=== PATIENT | female | born 1980 | race Caucasian/White ===

== ENCOUNTER 2018-04-19 19:07 | Emergency (ER) | payer MEDICARE, MEDICAID ==
[~2018-04-19] VITALS: Ht 162.6 cm; Wt 98.0 kg
[~2018-04-19 19:07] MED LIST: ACET-1008 PO; ALB0.5UD IH; ARIP5TAB4 PO; ASPI-611 PO; AZIT-63 PO; BACL10TA PO; CLA10T PO; DIPH25CA83 PO; IBUP-1984 PO; LAMO200T2 PO; LEVA15HF4 IH; LORA1TAB PO; LURA60TA2 PO; OMEP20TA23 PO; ZALE10CA PO
[2018-04-19 19:46] LABS: URINE HCG NEGATIVE (NEG)
[2018-04-19 19:55] LABS: CLARITY,URINE CLEAR (Clear); COLOR,URINE YELLOW (Yellow); GLUCOSE, URINE NEGATIVE (Neg); KETONES,URINE NEGATIVE (Neg); LEUKOCYTE ESTERASE ,URINE NEGATIVE (Neg); NITRITES, URINE NEGATIVE (Neg); OCCULT BLOOD,URINE MODERATE (Neg); PROTEIN,URINE NEGATIVE (Neg)
[2018-04-19 19:57] LABS: UA COLLECTION TYPE CLN CATCH MIDSTREAM
[2018-04-19 19:57] LABS: PROTHROMBIN TIME 9.9 SECONDS (9.0-12.0)
[2018-04-19 19:58] LABS: BASOPHILS # (AUTO) 0.1 X10'3 (0-0.2); BASOPHILS % (AUTO) 0.6 % (0-1); EOSINOPHILS # (AUTO) 0.2 X10'3 (0-0.9); EOSINOPHILS % (AUTO) 1.4 % (0-6); HEMATOCRIT 37.9 % (35.0-45.0); LYMPHOCYTES # (AUTO) 3.3 X10'3 (1.1-4.8); LYMPHOCYTES % (AUTO) 25.1 % (21-51); MEAN CORPUSCULAR HEMOGLOBIN 28.9 PG (27.0-31.0); MEAN CORPUSCULAR HGB CONC 34.2 % (33.0-36.5); MEAN CORPUSCULAR VOLUME 84.4 FL (78-98); MEAN PLATELET VOLUME 9.4 FL (7.4-10.4); MONOCYTES % (AUTO) 7.8 % (2-12); NEUTROPHILS # (AUTO) 8.5 X10'3 (1.8-7.7); NEUTROPHILS % (AUTO) 65.1 % (42-75); PLATELET COUNT 283 X10'3 (140-440); RED CELL DISTRIBUTION WIDTH 12.3 % (11.5-14.5); WHITE BLOOD COUNT 13.1 X10'3 (4.5-11.0)
[2018-04-19 20:02] LABS: BACTERIA,URINE FEW /HPF (Neg); MUCUS STRANDS FEW /LPF (Neg); RBC,URINE 0-2 /HPF (0-2); SQUAMOUS EPITHELIAL CELL,UR FEW /LPF (FEW); WBC,URINE 0-4 /HPF (0-4)
[2018-04-19 20:03] LABS: ALANINE AMINOTRANSFERASE 30 U/L (12-78); ALBUMIN 3.7 G/DL (3.4-5.0); ALBUMIN/GLOBULIN RATIO 1.1 (1.1-1.5); ALKALINE PHOSPHATASE 78 IU/L (46-116); ANION GAP 8 (8-16); ASPARTATE AMINO TRANSFERASE 24 U/L (10-37); BILIRUBIN,TOTAL 0.2 MG/DL (0.1-1.0); BLOOD UREA NITROGEN 21 MG/DL (7-18); BUN/CREATININE RATIO 16.4 (6.6-38.0); CALCIUM 9.5 MG/DL (8.5-10.1); CHLORIDE 102 MMOL/L (99-107); CREATININE 1.28 MG/DL (0.40-0.90); GLUCOSE 87 MG/DL (70-104); POTASSIUM 3.6 MMOL/L (3.5-5.1); SODIUM 140 MMOL/L (135-145); TOTAL CARBON DIOXIDE 30.1 MMOL/L (24-32); TOTAL PROTEIN 7.1 G/DL (6.4-8.2); eGFR 46 ML/MIN
[2018-04-19 20:19] VITALS: BP 114/63
[2018-04-19] MEDS ORDERED: MEDR5TAB PO (21:03)
== END 2018-04-19 21:09 | disposition home or self-care (01) ==
LOC: ER 19:07
DX: N93.8 Other specified abnormal uterine and vaginal bleeding (principal); I10 Essential (primary) hypertension; J45.909 Unspecified asthma, uncomplicated; Z86.711 Personal history of pulmonary embolism; G89.29 Other chronic pain; Z86.718 Personal history of other venous thrombosis and embolism; F41.9 Anxiety disorder, unspecified; F31.9 Bipolar disorder, unspecified; G47.30 Sleep apnea, unspecified; Z88.5 Allergy status to narcotic agent; Z79.82 Long term (current) use of aspirin; Z79.899 Other long term (current) drug therapy; Z79.2 Long term (current) use of antibiotics
CPT/HCPCS: 36415; 80053; 81001; 81025; 85025; 85610; 99284

== ENCOUNTER 2018-10-16 18:27 | Emergency (ER) | payer MEDICARE, MEDICAID ==
[~2018-10-16] VITALS: Ht 162.6 cm; Wt 109.0 kg
[~2018-10-16 18:27] MED LIST changes: +MEDR5TAB PO; +ONDA4TAB6 PO
--- NOTE | 2018-10-16 18:44 | NUR ---
POISON CONTROL CONTACTED AND SAID TO IRRIGATE WITH WATER OR SALINE FOR 10-15 MINUTES, OR USE MINERAL OIL, IF UNABLE TO REMOVE CALL COMPANY
--- NOTE | 2018-10-16 19:35 | NUR ---
PATIENT FINGERS SOAKED IN MINERAL OIL PER POISON CONTROL AT THIS TIME.
[2018-10-16 20:16] VITALS: BP 116/92
== END 2018-10-16 20:19 | disposition home or self-care (01) ==
LOC: ER 18:27
DX: T23.421A Corrosion of unspecified degree of single right finger (nail) except thumb, initial encounter (principal); I10 Essential (primary) hypertension; J45.909 Unspecified asthma, uncomplicated; G89.29 Other chronic pain; Z86.711 Personal history of pulmonary embolism; Z79.82 Long term (current) use of aspirin; Z79.899 Other long term (current) drug therapy; Y92.89 Other specified places as the place of occurrence of the external cause
CPT/HCPCS: 99281

== ENCOUNTER 2018-12-08 15:30 | Emergency (ER) | payer MEDICARE, MEDICAID ==
[~2018-12-08] VITALS: Ht 162.6 cm; Wt 110.9 kg
[2018-12-08 15:41] VITALS: BP 122/67
[2018-12-08 16:08] LABS: BASOPHILS # (AUTO) 0.2 X10'3 (0-0.2); BASOPHILS % (AUTO) 1.4 % (0-1); EOSINOPHILS # (AUTO) 0.2 X10'3 (0-0.9); EOSINOPHILS % (AUTO) 1.6 % (0-6); HEMATOCRIT 37.1 % (35.0-45.0); HEMOGLOBIN 12.1 g/dl (12.0-16.0); LYMPHOCYTES # (AUTO) 2.5 X10'3 (1.1-4.8); LYMPHOCYTES % (AUTO) 20.2 % (21-51); MEAN CORPUSCULAR HGB CONC 32.5 g/dL (33.0-36.5); MEAN CORPUSCULAR VOLUME 86.1 FL (78-98); MEAN PLATELET VOLUME 8.8 FL (7.4-10.4); MONOCYTES # (AUTO) 0.9 X10'3 (0-0.9); MONOCYTES % (AUTO) 7.7 % (2-12); NEUTROPHILS # (AUTO) 8.4 X10'3 (1.8-7.7); NEUTROPHILS % (AUTO) 69.1 % (42-75); PLATELET COUNT 270 X10'3 (140-440); RED BLOOD COUNT 4.31 X10'6 (4.20-5.60); WHITE BLOOD COUNT 12.2 X10'3 (4.5-11.0)
[2018-12-08 16:09] LABS: CLARITY,URINE CLEAR (Clear); COLOR,URINE STRAW (Yellow); GLUCOSE, URINE NEGATIVE (Neg); KETONES,URINE NEGATIVE (Neg); LEUKOCYTE ESTERASE ,URINE NEGATIVE (Neg); NITRITES, URINE NEGATIVE (Neg); OCCULT BLOOD,URINE NEGATIVE (Neg); PH,URINE 5.5 (4.8-8.0); PROTEIN,URINE NEGATIVE (Neg); UROBILINOGEN,URINE 0.2 E.U/dL (0.2-1.0)
[2018-12-08 16:10] LABS: URINE HCG NEGATIVE (NEG)
[2018-12-08 16:13] LABS: UA COLLECTION TYPE CLN CATCH MIDSTREAM
[2018-12-08 16:22] LABS: ALANINE AMINOTRANSFERASE 19 U/L (12-78); ALBUMIN 3.5 G/DL (3.4-5.0); ALKALINE PHOSPHATASE 61 IU/L (46-116); ANION GAP 5 (8-16); ASPARTATE AMINO TRANSFERASE 14 U/L (10-37); BILIRUBIN,TOTAL 0.1 MG/DL (0.1-1.0); BLOOD UREA NITROGEN 20 MG/DL (7-18); CALCIUM 9.1 MG/DL (8.5-10.1); CHLORIDE 105 MMOL/L (99-107); CREATININE 1.05 MG/DL (0.40-0.90); GLUCOSE 90 MG/DL (70-104); POTASSIUM 3.9 MMOL/L (3.5-5.1); SODIUM 139 MMOL/L (135-145); TOTAL CARBON DIOXIDE 28.7 MMOL/L (24-32); TOTAL PROTEIN 6.9 G/DL (6.4-8.2); eGFR 58 ML/MIN
[2018-12-08] MEDS ORDERED: mag hydrox/Alum hydrox/simeth 30ml oral suspension PO ONE (17:10)
[2018-12-08] MEDS ORDERED: acetaminophen 325mg tablet PO ONE (17:10)
[2018-12-08] MEDS ORDERED: metoclopramide 10mg tablet PO ONE (17:10)
[2018-12-08] MEDS ORDERED: ketorolac trometh inj. 60 MG/2 ML VIAL IM ONE (17:10)
[2018-12-08] MEDS ORDERED: LIDOcaine Viscous 15ml cup PO ONE (17:10)
[2018-12-08] MEDS ORDERED: famotidine 20mg tablet PO ONE (17:10)
[2018-12-08] MEDS ORDERED: PANT-47 PO (17:13)
[2018-12-08] MEDS ORDERED: AMOX500C2 PO (17:13)
== END 2018-12-08 17:43 | disposition home or self-care (01) ==
LOC: ER 15:31
DX: R51 Headache (principal); H66.92 Otitis media, unspecified, left ear; R10.13 Epigastric pain; I10 Essential (primary) hypertension; J45.909 Unspecified asthma, uncomplicated; G89.29 Other chronic pain; Z86.718 Personal history of other venous thrombosis and embolism; Z88.6 Allergy status to analgesic agent; Z79.82 Long term (current) use of aspirin
CPT/HCPCS: 36415; 80053; 81003; 81025; 85025; 85610; 96372; 99284; J1885; J8597

== ENCOUNTER 2018-12-17 16:57 | Emergency (ER) | payer MEDICARE, MEDICAID ==
[~2018-12-17] VITALS: Ht 162.6 cm; Wt 108.0 kg
[~2018-12-17 16:57] MED LIST changes: +AMOX500C2 PO; +PANT-47 PO
[2018-12-17 17:19] VITALS: BP 128/63
[2018-12-17 18:21] LABS: URINE HCG NEGATIVE (NEG)
[2018-12-17 18:23] LABS: CLARITY,URINE CLEAR (Clear); COLOR,URINE STRAW (Yellow); GLUCOSE, URINE NEGATIVE (Neg); KETONES,URINE NEGATIVE (Neg); LEUKOCYTE ESTERASE ,URINE NEGATIVE (Neg); NITRITES, URINE NEGATIVE (Neg); OCCULT BLOOD,URINE TRACE-INTACT (Neg); PH,URINE 7.5 (4.8-8.0); PROTEIN,URINE NEGATIVE (Neg); UROBILINOGEN,URINE 0.2 E.U/dL (0.2-1.0)
[2018-12-17 18:25] LABS: UA COLLECTION TYPE CLN CATCH MIDSTREAM
[2018-12-17 18:40] LABS: MUCUS STRANDS FEW /LPF (Neg); SQUAMOUS EPITHELIAL CELL,UR FEW /LPF (FEW)
[2018-12-17 18:42] LABS: BACTERIA,URINE NONE SEEN /HPF (Neg); RBC,URINE NONE SEEN /HPF (0-2); WBC,URINE NONE SEEN /HPF (0-4)
[2018-12-17] MEDS ORDERED: CYCL-1 PO (19:59)
== END 2018-12-17 20:18 | disposition home or self-care (01) ==
LOC: ER 16:58
DX: S39.012A Strain of muscle, fascia and tendon of lower back, initial encounter (principal); I10 Essential (primary) hypertension; J45.909 Unspecified asthma, uncomplicated; Z86.718 Personal history of other venous thrombosis and embolism; G89.29 Other chronic pain; Z88.5 Allergy status to narcotic agent; Z79.82 Long term (current) use of aspirin; Z79.899 Other long term (current) drug therapy; X58.XXXA Exposure to other specified factors, initial encounter; Y93.89 Activity, other specified; Y92.89 Other specified places as the place of occurrence of the external cause; Y99.8 Other external cause status
CPT/HCPCS: 81001; 81025; 99283

== ENCOUNTER 2019-04-04 17:29 | Emergency (ER) | payer MEDICARE, MEDICAID ==
[~2019-04-04] VITALS: Ht 162.6 cm; Wt 113.6 kg
[~2019-04-04 17:29] MED LIST changes: -AMOX500C2 PO; +CYCL-1 PO
[2019-04-04 17:32] VITALS: BP 129/52
[2019-04-04] MEDS ORDERED: ketorolac tromethamine 15mg/ml inj. IM ONE (19:30)
== END 2019-04-04 20:26 | disposition home or self-care (01) ==
LOC: ER 17:30
DX: R07.89 Other chest pain (principal); I10 Essential (primary) hypertension; J45.909 Unspecified asthma, uncomplicated; G47.30 Sleep apnea, unspecified; G89.29 Other chronic pain; F41.9 Anxiety disorder, unspecified; F31.9 Bipolar disorder, unspecified; Z86.711 Personal history of pulmonary embolism; Z86.718 Personal history of other venous thrombosis and embolism; Z88.5 Allergy status to narcotic agent; Z79.82 Long term (current) use of aspirin; Z79.899 Other long term (current) drug therapy
CPT/HCPCS: 71045; 96372; 99283; J1885

== ENCOUNTER 2019-04-10 14:07 | Emergency (ER) | payer MEDICARE, MEDICAID ==
[~2019-04-10] VITALS: Ht 162.6 cm; Wt 113.6 kg
--- NOTE | 2019-04-10 18:04 | NUR ---
pt ias resting with family at bedside
--- NOTE | 2019-04-10 19:00 | NUR ---
Assumed care of pt. Pt. sittng quietly in bed, 24 hour career and technology education teacher at her side. Pt. currently denies S/I, H/I, or H/A. Per caregiver, she was sent her by her psychiatrist for a medication adjustment, however she has an appointment to see her psychiatrist on Saturday. Pt. states, "I haven't been taking a PRN medication for nightmares X2 weeks and my head feels be." Pt. reports she wants go home and feels safe to do so with her 24 hour care providers. MD here to pt. and medically cleared for D/C and F/U with psychiatrist on Saturday.
[2019-04-10 19:18] VITALS: BP 123/57
--- NOTE | 2019-04-10 19:30 | NUR ---
Reviewed D/C instructions. Pt. provided with resources, and able to contact for safety at this time. Has an appointment to F/U with psychiatrist on Saturday. Pt. accompainied to private vehicle with caregivers and staff.
== END 2019-04-10 19:50 | disposition home or self-care (01) ==
LOC: ER 14:08
DX: F99 Mental disorder, not otherwise specified (principal); E66.9 Obesity, unspecified; I10 Essential (primary) hypertension; J45.909 Unspecified asthma, uncomplicated; G47.30 Sleep apnea, unspecified; G89.29 Other chronic pain; F41.9 Anxiety disorder, unspecified; F31.9 Bipolar disorder, unspecified; Z86.711 Personal history of pulmonary embolism; Z86.718 Personal history of other venous thrombosis and embolism; Z88.5 Allergy status to narcotic agent; Z79.82 Long term (current) use of aspirin; Z79.2 Long term (current) use of antibiotics; Z79.899 Other long term (current) drug therapy
CPT/HCPCS: 99281

== ENCOUNTER 2019-04-17 14:21 | Emergency (ER) | payer MEDICARE, MEDICAID ==
--- NOTE | 2019-04-17 15:06 | NUR ---
Second call not in lobby
== END 2019-04-17 15:44 | disposition left against medical advice (07) ==
LOC: ER 14:21
DX: R07.81 Pleurodynia (principal); Z53.21 Procedure and treatment not carried out due to patient leaving prior to being seen by health care provider

== ENCOUNTER 2019-08-10 15:56 | Emergency (ER) | payer MEDICARE, MEDICAID ==
[~2019-08-10] VITALS: Ht 161.3 cm; Wt 113.8 kg
[~2019-08-10 15:56] MED LIST changes: +ARIP5TAB14 PO; -ARIP5TAB4 PO
[2019-08-10] MEDS ORDERED: dexamethasone sod phosphate 10mg/ml inj IV STA (17:01)
[2019-08-10] MEDS ORDERED: ondansetron/PF 4mg/2ml inj IV ONE (17:05)
[2019-08-10] MEDS ORDERED: ketorolac tromethamine 15mg/ml inj. IV ONE (17:05)
[2019-08-10] MEDS ORDERED: normal saline 1000ML IV soln IVB ONE ×2 (17:05→18:00)
--- NOTE | 2019-08-10 18:09 | NUR ---
Pt is scheduled to have 5pm medications at the facility where she resides and RAS Schaeffer approved the caregiver from the home to dispense her regularly scheduled medications per their orders/routine.
[2019-08-10] MEDS ORDERED: morphine 2 MG/ML inj. syringe IV ONE (18:45)
[2019-08-10 19:25] VITALS: BP 124/70
== END 2019-08-10 19:27 | disposition home or self-care (01) ==
LOC: ER 15:57
DX: R51 Headache (principal); H92.09 Otalgia, unspecified ear; J45.909 Unspecified asthma, uncomplicated; I10 Essential (primary) hypertension; G47.30 Sleep apnea, unspecified; F41.9 Anxiety disorder, unspecified; F31.9 Bipolar disorder, unspecified; G89.29 Other chronic pain; Z86.711 Personal history of pulmonary embolism; Z86.718 Personal history of other venous thrombosis and embolism; Z88.5 Allergy status to narcotic agent; Z79.82 Long term (current) use of aspirin; Z79.899 Other long term (current) drug therapy
CPT/HCPCS: 96374; 96375; 99283; J1100; J1885; J2270; J2405; J7030

== ENCOUNTER 2019-08-15 17:44 | Emergency (ER) | payer MEDICARE, MEDICAID ==
[~2019-08-15] VITALS: Ht 162.6 cm; Wt 113.6 kg
[2019-08-15] MEDS ORDERED: ketorolac trometh inj. 60 MG/2 ML VIAL IM ONE (19:40)
[2019-08-15] MEDS ORDERED: fentaNYL/PF 50MCG/1 ML 2ML syringe IM ONE (19:40)
[2019-08-15 20:48] VITALS: BP 120/74
== END 2019-08-15 21:08 | disposition home or self-care (01) ==
LOC: ER 17:45
DX: R51 Headache (principal); J45.909 Unspecified asthma, uncomplicated; I10 Essential (primary) hypertension; G89.29 Other chronic pain; Z86.718 Personal history of other venous thrombosis and embolism; Z86.711 Personal history of pulmonary embolism; Z79.899 Other long term (current) drug therapy; Z88.5 Allergy status to narcotic agent; Z79.82 Long term (current) use of aspirin; Z79.2 Long term (current) use of antibiotics
CPT/HCPCS: 70450; 96372; 99284; J1885; J3010

== ENCOUNTER 2019-09-13 17:34 | Emergency (ER) | payer MEDICARE, MEDICAID ==
[~2019-09-13] VITALS: Ht 162.6 cm; Wt 111.0 kg
[2019-09-13] MEDS ORDERED: LIDOcaine 1% 30ml preserv. free vial IJ ONE (19:35)
--- NOTE | 2019-09-13 20:15 | NUR ---
PER FABY MCGINNIS, BRANDONAY FOR CAREGIVER TO ADMINISTER PATIENT'S HOME MEDICATIONS AT THIS TIME
[2019-09-13] MEDS ORDERED: amoxicillin 250mg capsule PO ONE (20:50)
[2019-09-13] MEDS ORDERED: AMOX500C2 PO (20:51)
[2019-09-13 21:45] LABS: D-DIMER 0.33 MG/L FEU (0-0.50)
[2019-09-13 22:08] VITALS: BP 118/80
== END 2019-09-13 22:10 | disposition home or self-care (01) ==
LOC: ER 17:34
DX: M25.511 Pain in right shoulder (principal); M79.18 Myalgia, other site; R07.1 Chest pain on breathing; M54.89 Other dorsalgia; H66.90 Otitis media, unspecified, unspecified ear; I10 Essential (primary) hypertension; J45.909 Unspecified asthma, uncomplicated; G47.30 Sleep apnea, unspecified; G89.29 Other chronic pain; F41.9 Anxiety disorder, unspecified; F31.9 Bipolar disorder, unspecified; Z86.718 Personal history of other venous thrombosis and embolism; Z86.711 Personal history of pulmonary embolism; Z79.2 Long term (current) use of antibiotics; Z79.82 Long term (current) use of aspirin; Z79.899 Other long term (current) drug therapy
CPT/HCPCS: 20552; 36415; 71045; 85379; 93005; 99285

== ENCOUNTER 2019-10-24 14:45 | Emergency (ER) | payer MEDICARE, MEDICAID ==
[~2019-10-24] VITALS: Ht 162.6 cm; Wt 115.9 kg
[2019-10-24 14:53] VITALS: BP 136/79
[2019-10-24] MEDS ORDERED: ketorolac tromethamine 15mg/ml inj. IM ONE (15:25)
== END 2019-10-24 17:22 | disposition home or self-care (01) ==
LOC: ER 14:46
DX: M54.5 Low back pain (principal); I10 Essential (primary) hypertension; G89.29 Other chronic pain; F41.9 Anxiety disorder, unspecified; F32.9 Major depressive disorder, single episode, unspecified; G47.30 Sleep apnea, unspecified; Z86.711 Personal history of pulmonary embolism; Z88.5 Allergy status to narcotic agent; Z79.82 Long term (current) use of aspirin; Z79.899 Other long term (current) drug therapy; Z86.718 Personal history of other venous thrombosis and embolism
CPT/HCPCS: 72100; 96372; 99283; J1885

== ENCOUNTER 2019-11-13 18:55 | Emergency (ER) | payer MEDICARE, MEDICAID ==
[~2019-11-13] VITALS: Ht 162.6 cm; Wt 115.0 kg
--- NOTE | 2019-11-13 19:35 | NUR ---
Calf circumference measurements: R 52cm L 49cm
--- NOTE | 2019-11-13 20:02 | NUR ---
TAR[facility] CALLED BACK AT 20:[address]
[2019-11-13] MEDS ORDERED: ibuprofen tablet 400 MG TABLET PO ONE (20:25)
--- NOTE | 2019-11-13 20:36 | NUR ---
Pt states that she took Ibuprofen 800mg 3 hours ago.
[2019-11-13] MEDS ORDERED: ORPH100T2 PO (21:26)
[2019-11-13 21:40] VITALS: BP 125/76
== END 2019-11-13 21:41 | disposition home or self-care (01) ==
LOC: ER 18:56
DX: M54.31 Sciatica, right side (principal); M79.661 Pain in right lower leg; I10 Essential (primary) hypertension; J45.909 Unspecified asthma, uncomplicated; G89.29 Other chronic pain; F41.9 Anxiety disorder, unspecified; F31.9 Bipolar disorder, unspecified; Z86.711 Personal history of pulmonary embolism; Z88.8 Allergy status to other drugs, medicaments and biological substances; Z79.82 Long term (current) use of aspirin; Z79.2 Long term (current) use of antibiotics; Z79.899 Other long term (current) drug therapy
CPT/HCPCS: 93971; 99284

== ENCOUNTER 2020-01-14 22:00 | Emergency (ER) | payer MEDICARE, MEDICAID ==
[~2020-01-14] VITALS: Ht 162.6 cm; Wt 113.6 kg
[~2020-01-14 22:00] MED LIST changes: +ORPH100T2 PO
[2020-01-14 22:07] VITALS: BP 130/78
== END 2020-01-14 23:19 | disposition home or self-care (01) ==
LOC: ER 22:01
DX: Z76.0 Encounter for issue of repeat prescription (principal); I10 Essential (primary) hypertension; J45.909 Unspecified asthma, uncomplicated; G47.30 Sleep apnea, unspecified; G89.29 Other chronic pain; F41.9 Anxiety disorder, unspecified; F31.9 Bipolar disorder, unspecified; Z86.718 Personal history of other venous thrombosis and embolism; Z86.711 Personal history of pulmonary embolism; Z88.8 Allergy status to other drugs, medicaments and biological substances; Z79.82 Long term (current) use of aspirin; Z79.2 Long term (current) use of antibiotics; Z79.899 Other long term (current) drug therapy
CPT/HCPCS: 99281

== ENCOUNTER 2020-02-20 08:03 | Emergency (ER) | payer MEDICARE, MEDICAID ==
[~2020-02-20] VITALS: Ht 162.6 cm; Wt 98.5 kg
[2020-02-20 10:07] LABS: BASOPHILS # (AUTO) 0.1 X10'3 (0-0.2); BASOPHILS % (AUTO) 0.6 % (0-1); EOSINOPHILS # (AUTO) 0.2 X10'3 (0-0.9); EOSINOPHILS % (AUTO) 1.8 % (0-6); HEMATOCRIT 36.6 % (35.0-45.0); HEMOGLOBIN 12.1 g/dl (12.0-16.0); LYMPHOCYTES # (AUTO) 2.3 X10'3 (1.1-4.8); LYMPHOCYTES % (AUTO) 20.7 % (21-51); MEAN CORPUSCULAR HEMOGLOBIN 28.3 PG (27.0-31.0); MEAN CORPUSCULAR VOLUME 85.8 FL (78-98); MEAN PLATELET VOLUME 8.5 FL (7.4-10.4); MONOCYTES # (AUTO) 0.9 X10'3 (0-0.9); MONOCYTES % (AUTO) 8.2 % (2-12); NEUTROPHILS # (AUTO) 7.5 X10'3 (1.8-7.7); NEUTROPHILS % (AUTO) 68.7 % (42-75); PLATELET COUNT 282 X10'3 (140-440); RED BLOOD COUNT 4.26 X10'6 (4.20-5.60); RED CELL DISTRIBUTION WIDTH 13.3 % (11.5-14.5)
[2020-02-20 10:10] LABS: ALBUMIN 3.7 G/DL (3.4-5.0); ANION GAP 7 (8-16); BLOOD UREA NITROGEN 20 MG/DL (7-18); BUN/CREATININE RATIO 19.6 (6.6-38.0); CALCIUM 9.4 MG/DL (8.5-10.1); CHLORIDE 104 MMOL/L (99-107); CREATININE 1.02 MG/DL (0.40-0.90); GLUCOSE 82 MG/DL (70-104); POTASSIUM 3.9 MMOL/L (3.5-5.1); SODIUM 139 MMOL/L (135-145); TOTAL CARBON DIOXIDE 28.3 MMOL/L (24-32); eGFR 60 ML/MIN
[2020-02-20 10:41] VITALS: BP 126/79
== END 2020-02-20 10:42 | disposition home or self-care (01) ==
LOC: ER 08:04
DX: S30.1XXA Contusion of abdominal wall, initial encounter (principal); I10 Essential (primary) hypertension; J45.909 Unspecified asthma, uncomplicated; G47.30 Sleep apnea, unspecified; G89.29 Other chronic pain; F41.9 Anxiety disorder, unspecified; F31.9 Bipolar disorder, unspecified; Z86.711 Personal history of pulmonary embolism; Z86.718 Personal history of other venous thrombosis and embolism; Z88.5 Allergy status to narcotic agent; Z79.82 Long term (current) use of aspirin; Z79.2 Long term (current) use of antibiotics; Z79.899 Other long term (current) drug therapy; X58.XXXA Exposure to other specified factors, initial encounter; Y93.89 Activity, other specified; Y92.89 Other specified places as the place of occurrence of the external cause; Y99.8 Other external cause status
CPT/HCPCS: 36415; 80048; 85025; 99283

== ENCOUNTER 2020-06-03 14:06 | Emergency (ER) | payer MEDICARE, MEDICAID ==
[~2020-06-03] VITALS: Ht 162.6 cm; Wt 113.6 kg
[~2020-06-03 14:06] MED LIST changes: +LURA60TA PO; -LURA60TA2 PO
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
--- NOTE | 2020-06-03 15:54 | NUR ---
SPOKEN TO RPLeann QUINONES AT [id number] VERIFIED THE WITH OFFICER JONI . ALSO INFORMED ABOUT THE INCIDENT AND STATED THAT PT DOES NOT WANT TO FILE ANY COMPLAINT DUE TO PTSD .
--- NOTE | 2020-06-03 16:38 | NUR ---
RAS ZAMBRANO TALKING TO THE PT AT THIS TIME ,PT IS AGITATED SHE WANT TO GO HOME BACK ,DOES NOT WANT TO BE HERE ,DENIES ANY SI .
[2020-06-03 17:31] VITALS: BP 126/82
== END 2020-06-03 17:39 | disposition home or self-care (01) ==
LOC: ER 14:07
DX: S09.90XA Unspecified injury of head, initial encounter (principal); R51.9 Headache, unspecified; I10 Essential (primary) hypertension; J45.909 Unspecified asthma, uncomplicated; G89.29 Other chronic pain; F41.9 Anxiety disorder, unspecified; F31.9 Bipolar disorder, unspecified; Z86.711 Personal history of pulmonary embolism; Z86.718 Personal history of other venous thrombosis and embolism; Z88.8 Allergy status to other drugs, medicaments and biological substances; Z79.82 Long term (current) use of aspirin; Z79.2 Long term (current) use of antibiotics; Z79.899 Other long term (current) drug therapy; X58.XXXA Exposure to other specified factors, initial encounter; Y93.89 Activity, other specified; Y92.89 Other specified places as the place of occurrence of the external cause; Y99.8 Other external cause status
CPT/HCPCS: 70450; 99284

== ENCOUNTER 2020-06-06 16:42 | Emergency (ER) | payer MEDICARE, MEDICAID ==
[~2020-06-06] VITALS: Ht 162.6 cm; Wt 113.2 kg
[2020-06-06] MEDS ORDERED: DEXA6TAB PO (17:48)
[2020-06-06 18:15] VITALS: BP 136/77
== END 2020-06-06 18:25 | disposition home or self-care (01) ==
LOC: ER 16:43
DX: R05 Cough (principal); J02.9 Acute pharyngitis, unspecified; R07.9 Chest pain, unspecified; I10 Essential (primary) hypertension; J45.909 Unspecified asthma, uncomplicated; G89.29 Other chronic pain; F31.9 Bipolar disorder, unspecified; Z88.5 Allergy status to narcotic agent; Z79.82 Long term (current) use of aspirin; Z79.1 Long term (current) use of non-steroidal anti-inflammatories (NSAID); Z79.899 Other long term (current) drug therapy
CPT/HCPCS: 36415; 99283

== ENCOUNTER 2020-11-26 17:45 | Emergency (ER) | payer MEDICARE, MEDICAID ==
[~2020-11-26] VITALS: Ht 162.6 cm; Wt 109.0 kg
[~2020-11-26 17:45] MED LIST changes: +DEXA6TAB PO
[2020-11-26 18:16] LABS: CLARITY,URINE CLEAR (Clear); COLOR,URINE YELLOW (Yellow); GLUCOSE, URINE NEGATIVE (Neg); KETONES,URINE NEGATIVE (Neg); LEUKOCYTE ESTERASE ,URINE NEGATIVE (Neg); NITRITES, URINE NEGATIVE (Neg); OCCULT BLOOD,URINE NEGATIVE (Neg); PROTEIN,URINE NEGATIVE (Neg); UA COLLECTION TYPE CLN CATCH MIDSTREAM; URINE HCG NEGATIVE (NEG); UROBILINOGEN,URINE 0.2 E.U/dL (0.2-1.0)
[2020-11-26 18:31] LABS: BASOPHILS # (AUTO) 0.1 X10'3 (0-0.2); BASOPHILS % (AUTO) 0.7 % (0-1); EOSINOPHILS # (AUTO) 0.3 X10'3 (0-0.9); EOSINOPHILS % (AUTO) 2.9 % (0-6); HEMATOCRIT 38.6 % (35.0-45.0); HEMOGLOBIN 12.6 g/dl (12.0-16.0); LYMPHOCYTES # (AUTO) 3.3 X10'3 (1.1-4.8); LYMPHOCYTES % (AUTO) 29.1 % (21-51); MEAN CORPUSCULAR HEMOGLOBIN 27.6 PG (27.0-31.0); MEAN CORPUSCULAR HGB CONC 32.6 g/dL (33.0-36.5); MEAN CORPUSCULAR VOLUME 84.6 FL (78-98); MEAN PLATELET VOLUME 8.8 FL (7.4-10.4); MONOCYTES # (AUTO) 0.8 X10'3 (0-0.9); MONOCYTES % (AUTO) 7.2 % (2-12); NEUTROPHILS # (AUTO) 6.8 X10'3 (1.8-7.7); NEUTROPHILS % (AUTO) 60.1 % (42-75); PLATELET COUNT 282 X10'3 (140-440); RED BLOOD COUNT 4.56 X10'6 (4.20-5.60); RED CELL DISTRIBUTION WIDTH 14.1 % (11.5-14.5); WHITE BLOOD COUNT 11.3 X10'3 (4.5-11.0)
[2020-11-26] MEDS ORDERED: ketorolac trometh. 30mg/ml inj. IV ONE (18:40)
[2020-11-26] MEDS ORDERED: normal saline 1000ML IV soln IVB ONE (18:40)
[2020-11-26] MEDS ORDERED: glycopyrrolate 0.2mg/ml inj IV ONE (18:40)
[2020-11-26 18:44] LABS: ALANINE AMINOTRANSFERASE 26 U/L (12-78); ALBUMIN 3.8 G/DL (3.4-5.0); ALBUMIN/GLOBULIN RATIO 1.1 (1.1-1.5); ALKALINE PHOSPHATASE 87 IU/L (46-116); AMYLASE 66 U/L (25-115); ANION GAP 8 (8-16); ASPARTATE AMINO TRANSFERASE 20 U/L (10-37); BILIRUBIN,TOTAL 0.3 MG/DL (0.1-1.0); BLOOD UREA NITROGEN 18 MG/DL (7-18); BUN/CREATININE RATIO 16.5 (6.6-38.0); CHLORIDE 104 MMOL/L (99-107); CREATININE 1.09 MG/DL (0.40-0.90); GLUCOSE 102 MG/DL (70-104); LIPASE 195 U/L (73-393); POTASSIUM 3.7 MMOL/L (3.5-5.1); SODIUM 140 MMOL/L (135-145); TOTAL CARBON DIOXIDE 28.4 MMOL/L (24-32); TOTAL PROTEIN 7.4 G/DL (6.4-8.2); eGFR 55 ML/MIN
--- NOTE | 2020-11-26 18:44 | NUR ---
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
[2020-11-26] MEDS ORDERED: DICY10CA88 PO (20:00)
[2020-11-26 20:42] VITALS: BP 131/73
== END 2020-11-26 20:44 | disposition home or self-care (01) ==
LOC: ER 17:46
DX: R10.31 Right lower quadrant pain (principal); R10.32 Left lower quadrant pain; R19.7 Diarrhea, unspecified; R51.9 Headache, unspecified; I10 Essential (primary) hypertension; J45.909 Unspecified asthma, uncomplicated; G47.30 Sleep apnea, unspecified; G89.29 Other chronic pain; F41.9 Anxiety disorder, unspecified; F31.9 Bipolar disorder, unspecified; Z86.711 Personal history of pulmonary embolism; Z88.5 Allergy status to narcotic agent; Z79.82 Long term (current) use of aspirin; Z79.899 Other long term (current) drug therapy
CPT/HCPCS: 36415; 80053; 81003; 81025; 82150; 83690; 85025; 96374; 96375; 99284; J1885; J7030; J3490

== ENCOUNTER 2020-12-02 19:57 | Emergency (ER) | payer MEDICARE, MEDICAID ==
[~2020-12-02] VITALS: Ht 162.6 cm; Wt 113.6 kg
[~2020-12-02 19:57] MED LIST changes: +DICY10CA88 PO
[2020-12-02 22:17] LABS: BASOPHILS # (AUTO) 0.1 X10'3 (0-0.2); BASOPHILS % (AUTO) 0.7 % (0-1); EOSINOPHILS # (AUTO) 0.2 X10'3 (0-0.9); EOSINOPHILS % (AUTO) 1.9 % (0-6); HEMATOCRIT 38.2 % (35.0-45.0); HEMOGLOBIN 12.6 g/dl (12.0-16.0); LYMPHOCYTES # (AUTO) 3.1 X10'3 (1.1-4.8); MEAN CORPUSCULAR HGB CONC 32.8 g/dL (33.0-36.5); MEAN CORPUSCULAR VOLUME 85.4 FL (78-98); MEAN PLATELET VOLUME 8.7 FL (7.4-10.4); MONOCYTES # (AUTO) 0.9 X10'3 (0-0.9); MONOCYTES % (AUTO) 7.4 % (2-12); NEUTROPHILS # (AUTO) 8.1 X10'3 (1.8-7.7); PLATELET COUNT 291 X10'3 (140-440); RED BLOOD COUNT 4.48 X10'6 (4.20-5.60); WHITE BLOOD COUNT 12.5 X10'3 (4.5-11.0)
[2020-12-02 22:35] LABS: ASPARTATE AMINO TRANSFERASE 2 U/L (10-37)
[2020-12-02 22:52] LABS: CHLORIDE 105 MMOL/L (99-107); POTASSIUM 3.3 MMOL/L (3.5-5.1)
[2020-12-02 23:11] LABS: ALANINE AMINOTRANSFERASE 27 U/L (12-78); ALBUMIN 3.9 G/DL (3.4-5.0); ALBUMIN/GLOBULIN RATIO 1.1 (1.1-1.5); ALKALINE PHOSPHATASE 82 IU/L (46-116); ANION GAP 11 (8-16); BILIRUBIN,TOTAL 0.2 MG/DL (0.1-1.0); CALCIUM 9.2 MG/DL (8.5-10.1); CREATININE 1.29 MG/DL (0.40-0.90); GLUCOSE 92 MG/DL (70-104); SODIUM 143 MMOL/L (135-145); TOTAL CARBON DIOXIDE 26.8 MMOL/L (24-32); TOTAL PROTEIN 7.4 G/DL (6.4-8.2); eGFR 45 ML/MIN
[2020-12-02] MEDS ORDERED: albuterol 2.5 MG/3 ML nebule NEB ONE (23:20)
--- NOTE | 2020-12-02 23:20 | NUR ---
Pt tearful and tachypnic. Pt stated that she is having trouble breathing and her chest feels tight. VSS. Pt states she has asthma that she manages with a maintenence and rescue inhaler. SVN ordered for patient.
[2020-12-02 23:28] LABS: D-DIMER 0.36 MG/L FEU (0-0.50)
[2020-12-02 23:36] LABS: BLOOD UREA NITROGEN 25 MG/DL (7-18); BUN/CREATININE RATIO 19.4 (6.6-38.0)
--- NOTE | 2020-12-02 23:54 | NUR ---
Patient states she still feels chest tightness after SVN treatment. MD notified.
[2020-12-03] MEDS ORDERED: dexamethasone sod phosphate 10mg/ml inj IV STA (00:03)
[2020-12-03] MEDS ORDERED: iohexol 350MG/ML 100ml bottle IV ONE (00:10)
[2020-12-03] MEDS ORDERED: LORazepam 2 mg/ml vial IV ONE (00:10)
[2020-12-03 02:41] VITALS: BP 117/62
== END 2020-12-03 02:42 | disposition home or self-care (01) ==
LOC: ER 19:58
DX: R07.89 Other chest pain (principal); J45.909 Unspecified asthma, uncomplicated; M79.89 Other specified soft tissue disorders; M79.671 Pain in right foot; R06.02 Shortness of breath; R05 Cough; I10 Essential (primary) hypertension; G89.29 Other chronic pain; F41.9 Anxiety disorder, unspecified; F31.9 Bipolar disorder, unspecified; Z86.711 Personal history of pulmonary embolism; Z86.718 Personal history of other venous thrombosis and embolism; Z88.8 Allergy status to other drugs, medicaments and biological substances; Z79.82 Long term (current) use of aspirin; Z79.2 Long term (current) use of antibiotics; Z79.899 Other long term (current) drug therapy
CPT/HCPCS: 36415; 71045; 71275; 80053; 83880; 84484; 85025; 85379; 93005; 94640; 96374; 96375; 99285; J1100; J2060; Q9967; 94760

== ENCOUNTER 2021-03-07 19:12 | Emergency (ER) | payer MEDICARE, MEDICAID ==
[~2021-03-07] VITALS: Ht 160 cm; Wt 116.3 kg
[~2021-03-07 19:12] MED LIST changes: -DICY10CA88 PO
[2021-03-07 19:37] VITALS: BP 132/75
== END 2021-03-07 22:22 | disposition home or self-care (01) ==
LOC: ER 19:13
DX: T78.8XXA Other adverse effects, not elsewhere classified, initial encounter (principal); I10 Essential (primary) hypertension; J45.909 Unspecified asthma, uncomplicated; G89.29 Other chronic pain; F41.9 Anxiety disorder, unspecified; F31.9 Bipolar disorder, unspecified; Z86.711 Personal history of pulmonary embolism; Z86.718 Personal history of other venous thrombosis and embolism; Z88.8 Allergy status to other drugs, medicaments and biological substances; Z79.82 Long term (current) use of aspirin; Z79.899 Other long term (current) drug therapy; Y92.89 Other specified places as the place of occurrence of the external cause
CPT/HCPCS: 99281

== ENCOUNTER 2021-04-30 06:22 | Emergency (ER) | payer MEDICARE, MEDICAID ==
[~2021-04-30] VITALS: Ht 162.6 cm; Wt 115.0 kg
[2021-04-30 06:35] VITALS: BP 173/64
== END 2021-04-30 08:39 | disposition home or self-care (01) ==
LOC: ER 06:22
DX: R50.9 Fever, unspecified (principal); Z20.822 Contact with and (suspected) exposure to COVID-19; R09.81 Nasal congestion; J45.909 Unspecified asthma, uncomplicated; I10 Essential (primary) hypertension; G47.30 Sleep apnea, unspecified; G89.29 Other chronic pain; Z86.718 Personal history of other venous thrombosis and embolism; Z86.711 Personal history of pulmonary embolism; Z88.8 Allergy status to other drugs, medicaments and biological substances; Z79.82 Long term (current) use of aspirin; Z79.899 Other long term (current) drug therapy
CPT/HCPCS: 87635; 99283; C9803

== ENCOUNTER 2021-06-16 22:47 | Emergency (ER) | payer MEDICARE, MEDICAID ==
[~2021-06-16] VITALS: Ht 160 cm; Wt 115.9 kg
[~2021-06-16 22:47] MED LIST changes: -AZIT-63 PO; +AZIT-83 PO
[2021-06-16 23:47] VITALS: BP 117/57
[2021-06-17 01:15] LABS: URINE HCG NEGATIVE (NEG)
[2021-06-17] MEDS ORDERED: metoclopramide 5 mg/ml inj IM ONE (01:35)
[2021-06-17] MEDS ORDERED: ketorolac trometh inj. 60 MG/2 ML VIAL IM ONE (01:35)
[2021-06-17] MEDS ORDERED: diphenhydrAMINE 25mg capsule PO ONE (01:35)
== END 2021-06-17 03:26 | disposition home or self-care (01) ==
LOC: ER 22:49
DX: G43.909 Migraine, unspecified, not intractable, without status migrainosus (principal); I10 Essential (primary) hypertension; J45.909 Unspecified asthma, uncomplicated; G89.29 Other chronic pain; F41.9 Anxiety disorder, unspecified; F31.9 Bipolar disorder, unspecified; Z87.01 Personal history of pneumonia (recurrent); Z86.718 Personal history of other venous thrombosis and embolism; Z88.8 Allergy status to other drugs, medicaments and biological substances; Z79.82 Long term (current) use of aspirin; Z79.2 Long term (current) use of antibiotics; Z79.899 Other long term (current) drug therapy
CPT/HCPCS: 81025; 93005; 96372; 99284; J1885; J2765; Q0163

== ENCOUNTER 2021-06-29 19:02 | Emergency (ER) | payer MEDICARE, MEDICAID ==
[2021-06-29 20:06] LABS: BASOPHILS # (AUTO) 0.1 X10'3 (0-0.2); BASOPHILS % (AUTO) 0.4 % (0-1); EOSINOPHILS # (AUTO) 0.3 X10'3 (0-0.9); EOSINOPHILS % (AUTO) 2.1 % (0-6); HEMATOCRIT 39.2 % (35.0-45.0); LYMPHOCYTES # (AUTO) 1.2 X10'3 (1.1-4.8); LYMPHOCYTES % (AUTO) 9.4 % (21-51); MEAN CORPUSCULAR HGB CONC 33.1 g/dL (33.0-36.5); MEAN CORPUSCULAR VOLUME 84.6 FL (78-98); MEAN PLATELET VOLUME 7.9 FL (7.4-10.4); MONOCYTES # (AUTO) 1.2 X10'3 (0-0.9); MONOCYTES % (AUTO) 9.2 % (2-12); NEUTROPHILS # (AUTO) 10.2 X10'3 (1.8-7.7); NEUTROPHILS % (AUTO) 78.9 % (42-75); PLATELET COUNT 355 X10'3 (140-440); RED BLOOD COUNT 4.63 X10'6 (4.20-5.60); RED CELL DISTRIBUTION WIDTH 13.6 % (11.5-14.5)
[2021-06-29 20:16] LABS: ALANINE AMINOTRANSFERASE 30 U/L (12-78); ALBUMIN 3.8 G/DL (3.4-5.0); ALKALINE PHOSPHATASE 84 IU/L (46-116); ANION GAP 9 (8-16); ASPARTATE AMINO TRANSFERASE 21 U/L (10-37); BILIRUBIN,TOTAL 0.4 MG/DL (0.1-1.0); BLOOD UREA NITROGEN 20 MG/DL (7-18); BUN/CREATININE RATIO 17.1 (6.6-38.0); CALCIUM 9.3 MG/DL (8.5-10.1); CHLORIDE 102 MMOL/L (99-107); CREATININE 1.17 MG/DL (0.40-0.90); GLUCOSE 97 MG/DL (70-104); POTASSIUM 3.5 MMOL/L (3.5-5.1); SODIUM 141 MMOL/L (135-145); TOTAL CARBON DIOXIDE 30.2 MMOL/L (24-32); TOTAL PROTEIN 7.6 G/DL (6.4-8.2); eGFR 51 ML/MIN
[2021-06-29 20:45] VITALS: BP 118/78
== END 2021-06-29 21:40 | disposition left against medical advice (07) ==
LOC: ER 19:02
DX: R07.89 Other chest pain (principal); Z53.21 Procedure and treatment not carried out due to patient leaving prior to being seen by health care provider
CPT/HCPCS: 36415; 71045; 80053; 83880; 84484; 85025; 93005

== ENCOUNTER 2021-09-02 15:25 | Emergency (ER) | payer MEDICARE, MEDICAID ==
[~2021-09-02] VITALS: Ht 162.6 cm; Wt 114.3 kg
[2021-09-02] MEDS ORDERED: normal saline 1000ML IV soln IV ONE (15:40)
[2021-09-02] MEDS ORDERED: ondansetron/PF 4mg/2ml inj IV ONE (15:40)
[2021-09-02 16:06] LABS: BASOPHILS % (AUTO) 0.1 % (0-1); EOSINOPHILS # (AUTO) 0.1 X10'3 (0-0.9); EOSINOPHILS % (AUTO) 0.3 % (0-6); HEMATOCRIT 41.5 % (35.0-45.0); HEMOGLOBIN 13.5 g/dl (12.0-16.0); LYMPHOCYTES # (AUTO) 0.6 X10'3 (1.1-4.8); LYMPHOCYTES % (AUTO) 3.5 % (21-51); MEAN CORPUSCULAR HEMOGLOBIN 27.3 PG (27.0-31.0); MEAN CORPUSCULAR HGB CONC 32.6 g/dL (33.0-36.5); MEAN PLATELET VOLUME 8.5 FL (7.4-10.4); MONOCYTES # (AUTO) 0.6 X10'3 (0-0.9); MONOCYTES % (AUTO) 3.5 % (2-12); NEUTROPHILS # (AUTO) 14.8 X10'3 (1.8-7.7); NEUTROPHILS % (AUTO) 92.6 % (42-75); PLATELET COUNT 328 X10'3 (140-440); RED BLOOD COUNT 4.95 X10'6 (4.20-5.60); RED CELL DISTRIBUTION WIDTH 13.5 % (11.5-14.5)
[2021-09-02] MEDS ORDERED: CefTRIAXone 2gm/D5W 50ml BAG 50 ML IV ONE (16:15)
[2021-09-02] MEDS ORDERED: azithromycin/NS 500mg/250ml 250 ML IV ONE (16:15)
[2021-09-02 16:16] LABS: ALANINE AMINOTRANSFERASE 25 U/L (12-78); ALBUMIN 3.6 G/DL (3.4-5.0); ALBUMIN/GLOBULIN RATIO 1.2 (1.1-1.5); ALKALINE PHOSPHATASE 66 IU/L (46-116); ANION GAP 14 (8-16); ASPARTATE AMINO TRANSFERASE 17 U/L (10-37); BILIRUBIN,TOTAL 0.4 MG/DL (0.1-1.0); BLOOD UREA NITROGEN 27 MG/DL (7-18); BUN/CREATININE RATIO 26.7 (6.6-38.0); CALCIUM 8.7 MG/DL (8.5-10.1); CHLORIDE 104 MMOL/L (99-107); CREATININE 1.01 MG/DL (0.40-0.90); GLUCOSE 107 MG/DL (70-104); POTASSIUM 3.7 MMOL/L (3.5-5.1); SODIUM 142 MMOL/L (135-145); TOTAL CARBON DIOXIDE 24.3 MMOL/L (24-32); TOTAL PROTEIN 6.7 G/DL (6.4-8.2); eGFR 60 ML/MIN
--- NOTE | 2021-09-02 16:24 | NUR ---
Spoke with Edwardo MCGINNIS regarding need for Blood cultures, he did not feel they were necessary prior to antibiotic administration. Addendum: 09/02/21 at 1625 by CARLOZ Primary RN aware.
[2021-09-02 16:37] LABS: CLARITY,URINE SLIGHTLY CLOUDY (Clear); COLOR,URINE YELLOW (Yellow); GLUCOSE, URINE NEGATIVE (Neg); KETONES,URINE TRACE mg/dl (Neg); LEUKOCYTE ESTERASE ,URINE NEGATIVE (Neg); NITRITES, URINE NEGATIVE (Neg); OCCULT BLOOD,URINE TRACE-INTACT (Neg); PROTEIN,URINE NEGATIVE (Neg); UROBILINOGEN,URINE 0.2 E.U/dL (0.2-1.0)
[2021-09-02 16:39] LABS: UA COLLECTION TYPE CLN CATCH MIDSTREAM
[2021-09-02 16:42] LABS: PLATELET ESTIMATE NORMAL; TOTAL CELLS COUNTED 100
[2021-09-02 16:43] LABS: BACTERIA,URINE 3+ /HPF (Neg); MUCUS STRANDS FEW /LPF (Neg); RBC,URINE 0-2 /HPF (0-2); SQUAMOUS EPITHELIAL CELL,UR MANY /LPF (FEW); WBC,URINE 0-4 /HPF (0-4)
[2021-09-02] MEDS ORDERED: ONDA4TAB12 PO (17:29)
[2021-09-02 18:46] VITALS: BP 113/50
== END 2021-09-02 19:10 | disposition home or self-care (01) ==
LOC: ER 15:29
DX: K52.9 Noninfective gastroenteritis and colitis, unspecified (principal); Z20.822 Contact with and (suspected) exposure to COVID-19; R50.9 Fever, unspecified; R53.1 Weakness; R07.89 Other chest pain; R11.2 Nausea with vomiting, unspecified; R05.9 Cough, unspecified; I10 Essential (primary) hypertension; J45.909 Unspecified asthma, uncomplicated; G89.29 Other chronic pain; F41.9 Anxiety disorder, unspecified; F31.9 Bipolar disorder, unspecified; Z86.711 Personal history of pulmonary embolism; Z86.718 Personal history of other venous thrombosis and embolism; Z88.8 Allergy status to other drugs, medicaments and biological substances; Z79.82 Long term (current) use of aspirin; Z79.2 Long term (current) use of antibiotics; Z79.899 Other long term (current) drug therapy
CPT/HCPCS: 36415; 71045; 74176; 80053; 81001; 84145; 85007; 85025; 87502; 87503; 87635; 93005; 96361; 96365; 96366; 96368; 96375; 99285; C9803; J0456; J0696; J2405; J7030

== ENCOUNTER 2021-09-17 20:28 | Emergency (ER) | payer MEDICARE, MEDICAID ==
[~2021-09-17] VITALS: Ht 162.6 cm; Wt 117.0 kg
[~2021-09-17 20:28] MED LIST changes: +ONDA4TAB12 PO
[2021-09-17] MEDS ORDERED: INHA1EAC9 INH (22:53)
[2021-09-17] MEDS ORDERED: ondansetron 4mg rapidly disintigrating tab PO ONE (22:55)
[2021-09-17 23:11] VITALS: BP 14/70
== END 2021-09-17 23:13 | disposition home or self-care (01) ==
LOC: ER 20:28
DX: R05.9 Cough, unspecified (principal); R11.10 Vomiting, unspecified; R07.2 Precordial pain; R62.50 Unspecified lack of expected normal physiological development in childhood; I10 Essential (primary) hypertension; J45.909 Unspecified asthma, uncomplicated; G47.30 Sleep apnea, unspecified; G89.29 Other chronic pain; Z86.718 Personal history of other venous thrombosis and embolism; Z87.01 Personal history of pneumonia (recurrent); Z88.8 Allergy status to other drugs, medicaments and biological substances; Z79.2 Long term (current) use of antibiotics; Z79.899 Other long term (current) drug therapy
CPT/HCPCS: 71045; 99284

== ENCOUNTER 2021-11-07 18:15 | Emergency (ER) | payer MEDICARE, MEDICAID ==
[~2021-11-07] VITALS: Ht 162.6 cm; Wt 115.9 kg
[~2021-11-07 18:15] MED LIST changes: +INHA1EAC9 INH
[2021-11-07 18:54] LABS: BASOPHILS # (AUTO) 0.1 X10'3 (0-0.2); BASOPHILS % (AUTO) 1.3 % (0-1); EOSINOPHILS # (AUTO) 0.2 X10'3 (0-0.9); EOSINOPHILS % (AUTO) 1.6 % (0-6); HEMATOCRIT 37.5 % (35.0-45.0); HEMOGLOBIN 12.2 g/dl (12.0-16.0); LYMPHOCYTES # (AUTO) 2.3 X10'3 (1.1-4.8); MEAN CORPUSCULAR HEMOGLOBIN 26.5 PG (27.0-31.0); MEAN CORPUSCULAR HGB CONC 32.4 g/dL (33.0-36.5); MEAN CORPUSCULAR VOLUME 81.6 FL (78-98); MEAN PLATELET VOLUME 8.3 FL (7.4-10.4); MONOCYTES % (AUTO) 9.4 % (2-12); NEUTROPHILS # (AUTO) 6.5 X10'3 (1.8-7.7); NEUTROPHILS % (AUTO) 64.7 % (42-75); PLATELET COUNT 327 X10'3 (140-440); RED BLOOD COUNT 4.59 X10'6 (4.20-5.60); RED CELL DISTRIBUTION WIDTH 13.9 % (11.5-14.5); WHITE BLOOD COUNT 10.1 X10'3 (4.5-11.0)
[2021-11-07 19:10] LABS: ALANINE AMINOTRANSFERASE 29 U/L (12-78); ALBUMIN 3.9 G/DL (3.4-5.0); ALBUMIN/GLOBULIN RATIO 1.1 (1.1-1.5); ALKALINE PHOSPHATASE 89 IU/L (46-116); ANION GAP 10 (8-16); ASPARTATE AMINO TRANSFERASE 18 U/L (10-37); BILIRUBIN,TOTAL 0.2 MG/DL (0.1-1.0); BLOOD UREA NITROGEN 17 MG/DL (7-18); BUN/CREATININE RATIO 14.2 (6.6-38.0); CALCIUM 9.2 MG/DL (8.5-10.1); CHLORIDE 103 MMOL/L (99-107); GLUCOSE 113 MG/DL (70-104); POTASSIUM 3.5 MMOL/L (3.5-5.1); SODIUM 140 MMOL/L (135-145); TOTAL CARBON DIOXIDE 27.4 MMOL/L (24-32); TOTAL PROTEIN 7.6 G/DL (6.4-8.2); eGFR 49 ML/MIN
[2021-11-08 01:39] LABS: D-DIMER 1.04 MG/L FEU (0-0.50)
[2021-11-08] MEDS ORDERED: iohexol 350MG/ML 100ml bottle IV ONE (02:27)
[2021-11-08 04:30] VITALS: BP 117/70
== END 2021-11-08 06:49 | disposition home or self-care (01) ==
LOC: ER 18:16
DX: R07.89 Other chest pain (principal); R10.13 Epigastric pain; K59.00 Constipation, unspecified; I10 Essential (primary) hypertension; J45.909 Unspecified asthma, uncomplicated; G89.29 Other chronic pain; F41.9 Anxiety disorder, unspecified; F31.9 Bipolar disorder, unspecified; Z86.711 Personal history of pulmonary embolism; Z86.718 Personal history of other venous thrombosis and embolism; Z98.890 Other specified postprocedural states; Z88.8 Allergy status to other drugs, medicaments and biological substances; Z79.82 Long term (current) use of aspirin; Z79.2 Long term (current) use of antibiotics; Z79.899 Other long term (current) drug therapy
CPT/HCPCS: 36415; 71045; 71275; 80053; 83880; 84484; 85025; 85379; 93005; 93971; 99285; Q9967

== ENCOUNTER 2021-11-15 23:01 | Emergency (ER) | payer MEDICARE, MEDICAID ==
[~2021-11-15] VITALS: Ht 162.6 cm; Wt 113.6 kg
[2021-11-15 23:21] VITALS: BP 109/69
== END 2021-11-15 23:48 | disposition left against medical advice (07) ==
LOC: ER 23:02
DX: F41.9 Anxiety disorder, unspecified (principal); Z53.21 Procedure and treatment not carried out due to patient leaving prior to being seen by health care provider
CPT/HCPCS: 93005

== ENCOUNTER 2022-02-09 16:50 | Emergency (ER) | payer MEDICARE, MEDICAID | END 2022-02-09 17:50 | disposition left against medical advice (07) | LOC: ER 16:51 | DX: Z00.8 Encounter for other general examination (principal); Z53.21 Procedure and treatment not carried out due to patient leaving prior to being seen by health care provider ==

== ENCOUNTER 2022-02-19 18:29 | Emergency (ER) | payer MEDICARE, MEDICAID ==
[~2022-02-19] VITALS: Ht 162.6 cm; Wt 115.0 kg
[2022-02-19 19:16] LABS: BASOPHILS # (AUTO) 0.1 X10'3 (0-0.2); BASOPHILS % (AUTO) 0.9 % (0-1); EOSINOPHILS # (AUTO) 0.2 X10'3 (0-0.9); EOSINOPHILS % (AUTO) 1.7 % (0-6); HEMATOCRIT 39.1 % (35.0-45.0); HEMOGLOBIN 12.9 g/dl (12.0-16.0); LYMPHOCYTES # (AUTO) 2.9 X10'3 (1.1-4.8); LYMPHOCYTES % (AUTO) 32.1 % (21-51); MEAN CORPUSCULAR HGB CONC 32.9 g/dL (33.0-36.5); MEAN CORPUSCULAR VOLUME 81.9 FL (78-98); MEAN PLATELET VOLUME 8.5 FL (7.4-10.4); MONOCYTES # (AUTO) 0.8 X10'3 (0-0.9); MONOCYTES % (AUTO) 8.8 % (2-12); NEUTROPHILS # (AUTO) 5.1 X10'3 (1.8-7.7); NEUTROPHILS % (AUTO) 56.5 % (42-75); PLATELET COUNT 352 X10'3 (140-440); RED BLOOD COUNT 4.78 X10'6 (4.20-5.60); RED CELL DISTRIBUTION WIDTH 13.9 % (11.5-14.5)
[2022-02-19 19:27] LABS: URINE HCG NEGATIVE (NEG)
[2022-02-19 19:31] LABS: ALANINE AMINOTRANSFERASE 24 U/L (12-78); ALBUMIN 3.9 G/DL (3.4-5.0); ALKALINE PHOSPHATASE 82 IU/L (46-116); ANION GAP 13 (8-16); ASPARTATE AMINO TRANSFERASE 20 U/L (10-37); BILIRUBIN,TOTAL 0.1 MG/DL (0.1-1.0); BLOOD UREA NITROGEN 19 MG/DL (7-18); BUN/CREATININE RATIO 19.4 (6.6-38.0); CALCIUM 8.9 MG/DL (8.5-10.1); CHLORIDE 104 MMOL/L (99-107); CREATININE 0.98 MG/DL (0.40-0.90); GLUCOSE 85 MG/DL (70-104); LIPASE 283 U/L (73-393); SODIUM 142 MMOL/L (135-145); TOTAL CARBON DIOXIDE 25.3 MMOL/L (24-32); TOTAL PROTEIN 7.7 G/DL (6.4-8.2); eGFR 62 ML/MIN
[2022-02-19 19:37] LABS: CLARITY,URINE CLEAR (Clear); COLOR,URINE YELLOW (Yellow); GLUCOSE, URINE NEGATIVE (Neg); KETONES,URINE NEGATIVE (Neg); LEUKOCYTE ESTERASE ,URINE TRACE (Neg); NITRITES, URINE NEGATIVE (Neg); OCCULT BLOOD,URINE NEGATIVE (Neg); PH,URINE 6.5 (4.8-8.0); PROTEIN,URINE NEGATIVE (Neg); UROBILINOGEN,URINE 0.2 E.U/dL (0.2-1.0)
[2022-02-19 19:40] LABS: UA COLLECTION TYPE NON-SPECIFIED
[2022-02-19 19:42] LABS: BACTERIA,URINE 1+ /HPF (Neg); RBC,URINE 0-2 /HPF (0-2); SQUAMOUS EPITHELIAL CELL,UR FEW /LPF (FEW)
[2022-02-19] MEDS ORDERED: ketorolac trometh. 30mg/ml inj. IM ONE (20:00)
[2022-02-19 21:11] VITALS: BP 126/68
== END 2022-02-19 21:34 | disposition home or self-care (01) ==
LOC: ER 18:30
DX: R10.30 Lower abdominal pain, unspecified (principal); R10.31 Right lower quadrant pain; I10 Essential (primary) hypertension; J45.909 Unspecified asthma, uncomplicated; G89.29 Other chronic pain; Z88.8 Allergy status to other drugs, medicaments and biological substances; Z79.82 Long term (current) use of aspirin; Z79.2 Long term (current) use of antibiotics; Z79.899 Other long term (current) drug therapy
CPT/HCPCS: 36415; 74176; 80053; 81001; 81025; 83690; 85025; 87088; 96372; 99284; J1885

== ENCOUNTER 2022-04-17 18:59 | Emergency (ER) | payer MEDICARE, MEDICAID ==
[~2022-04-17] VITALS: Ht 162.6 cm; Wt 116.4 kg
[2022-04-17 19:24] VITALS: BP 131/87
== END 2022-04-18 01:56 | disposition left against medical advice (07) ==
LOC: ER 19:00
DX: R20.0 Anesthesia of skin (principal); Z53.21 Procedure and treatment not carried out due to patient leaving prior to being seen by health care provider

== ENCOUNTER 2023-01-03 18:11 | Emergency (ER) | payer MEDICARE, MEDICAID ==
[~2023-01-03] VITALS: Ht 162.6 cm; Wt 150.0 kg
[~2023-01-03 18:11] MED LIST changes: +AZIT-164 PO; -AZIT-83 PO; -ORPH100T2 PO; +ORPH100T4 PO
[2023-01-03 18:14] VITALS: BP 125/73
[2023-01-03 19:02] LABS: URINE HCG NEGATIVE (NEG)
[2023-01-03 19:05] LABS: CLARITY,URINE CLOUDY (Clear); COLOR,URINE YELLOW (Yellow); GLUCOSE, URINE NEGATIVE (Neg); KETONES,URINE NEGATIVE (Neg); LEUKOCYTE ESTERASE ,URINE NEGATIVE (Neg); NITRITES, URINE NEGATIVE (Neg); OCCULT BLOOD,URINE NEGATIVE (Neg); PH,URINE 7.5 (4.8-8.0); PROTEIN,URINE NEGATIVE (Neg); UROBILINOGEN,URINE 0.2 E.U/dL (0.2-1.0)
[2023-01-03 19:09] LABS: UA COLLECTION TYPE CLN CATCH MIDSTREAM
[2023-01-03 19:15] LABS: RBC,URINE NONE SEEN /HPF (0-2); SQUAMOUS EPITHELIAL CELL,UR MANY /LPF (FEW); WBC,URINE 0-4 /HPF (0-4)
[2023-01-03 19:16] LABS: AMORPHOUS PHOSPHATES 4+; BACTERIA,URINE 3+ /HPF (Neg); YEAST FEW /HPF (NEGATIVE)
== END 2023-01-03 22:02 | disposition left against medical advice (07) ==
LOC: ER 18:12
DX: R51.9 Headache, unspecified (principal); Z53.21 Procedure and treatment not carried out due to patient leaving prior to being seen by health care provider
CPT/HCPCS: 81001; 81025; 82948; 99281

== ENCOUNTER 2023-06-09 12:03 | Emergency (ER) | payer MEDICARE, MEDICAID ==
[~2023-06-09] VITALS: Ht 162.6 cm; Wt 270.0 kg
[2023-06-09 12:05] VITALS: BP 143/77; PULSE 77; RESP 20; TEMP 98.7; O2SAT 96
== END 2023-06-09 15:02 | disposition left against medical advice (07) ==
LOC: ER 12:03
DX: M25.552 Pain in left hip (principal); Z53.21 Procedure and treatment not carried out due to patient leaving prior to being seen by health care provider
CPT/HCPCS: 73502; 73552; 99281

== ENCOUNTER 2024-01-21 19:38 | Emergency (ER) | payer MEDICARE, MEDICAID ==
[~2024-01-21] VITALS: Ht 162.6 cm; Wt 111.9 kg
[~2024-01-21 19:38] MED LIST changes: +ARIP5TAB12 PO; -ARIP5TAB14 PO; +ONDA-243 PO; -ONDA4TAB12 PO
[2024-01-21] MEDS: dexamethasone sod phosphate 10mg/ml inj PO STA (21:20)
[2024-01-21] MEDS: CefTRIAXone 1000mg IM Kit (w/lidocaine diluent) IM ONE (21:20)
[2024-01-21] MEDS: ipratropium/albuterol 3ml nebule NEB STA (21:27)
[2024-01-21 21:28] VITALS: PULSE 101; RESP 20; O2SAT 96
[2024-01-21 21:36] VITALS: PULSE 98; RESP 18; O2SAT 99
[2024-01-21] MEDS ORDERED: AZIT250T PO (21:42)
[2024-01-21] MEDS ORDERED: METH4TAB81 PO (21:42)
[2024-01-21] MEDS ORDERED: PROM118S5 PO (21:42)
[2024-01-21 22:00] VITALS: BP 142/78; PULSE 88; RESP 20; TEMP 97.8; O2SAT 97
== END 2024-01-21 22:04 | disposition home or self-care (01) ==
LOC: ER 19:38
DX: J18.9 Pneumonia, unspecified organism (principal); I10 Essential (primary) hypertension; J45.909 Unspecified asthma, uncomplicated; F31.9 Bipolar disorder, unspecified; Z88.5 Allergy status to narcotic agent; Z79.899 Other long term (current) drug therapy; Z79.82 Long term (current) use of aspirin; Z79.1 Long term (current) use of non-steroidal anti-inflammatories (NSAID); Z79.2 Long term (current) use of antibiotics
CPT/HCPCS: 71045; 73590; 94640; 96372; 99284; J0696; J1100; 94760

== ENCOUNTER 2024-06-28 09:18 | Emergency (ER) | payer MEDICARE, MEDICAID ==
[~2024-06-28] VITALS: Ht 162.6 cm; Wt 114.1 kg
[~2024-06-28 09:18] MED LIST changes: +AZIT250T PO; +METH4TAB81 PO
[2024-06-28 09:20] VITALS: BP 154/61; PULSE 82; RESP 15; O2SAT 97
[2024-06-28] MEDS: SUMAtriptan succ. 6 MG/0.5ml vial SQ ONE (10:49)
[2024-06-28 12:11] VITALS: TEMP 97.6
== END 2024-06-28 12:12 | disposition home or self-care (01) ==
LOC: ER 09:19
DX: G43.909 Migraine, unspecified, not intractable, without status migrainosus (principal); T78.40XA Allergy, unspecified, initial encounter; F31.9 Bipolar disorder, unspecified; J45.909 Unspecified asthma, uncomplicated; I10 Essential (primary) hypertension; G47.30 Sleep apnea, unspecified; Z88.5 Allergy status to narcotic agent; Z98.890 Other specified postprocedural states; Z86.718 Personal history of other venous thrombosis and embolism; Z79.82 Long term (current) use of aspirin; X58.XXXA Exposure to other specified factors, initial encounter
CPT/HCPCS: 70450; 96372; 99285; J3030

== ENCOUNTER 2024-09-08 09:35 | Emergency (ER) | payer BC, MEDICAID ==
[~2024-09-08] VITALS: Ht 162.6 cm; Wt 111.3 kg
[2024-09-08 10:20] LABS: BASOPHILS # (AUTO) 0.1 X10'3 (0-0.2); BASOPHILS % (AUTO) 0.8 % (0-1); EOSINOPHILS # (AUTO) 0.1 X10'3 (0-0.9); EOSINOPHILS % (AUTO) 1.5 % (0-6); HEMATOCRIT 39.7 % (35.0-45.0); LYMPHOCYTES # (AUTO) 2.5 X10'3 (1.1-4.8); LYMPHOCYTES % (AUTO) 30.1 % (21-51); MEAN CORPUSCULAR HEMOGLOBIN 27.3 PG (27.0-31.0); MEAN CORPUSCULAR HGB CONC 32.8 g/dL (33.0-36.5); MEAN CORPUSCULAR VOLUME 83.4 FL (78-98); MEAN PLATELET VOLUME 8.1 FL (7.4-10.4); MONOCYTES # (AUTO) 0.6 X10'3 (0-0.9); MONOCYTES % (AUTO) 7.8 % (2-12); NEUTROPHILS # (AUTO) 4.9 X10'3 (1.8-7.7); NEUTROPHILS % (AUTO) 59.8 % (42-75); PLATELET COUNT 312 X10'3 (140-440); RED BLOOD COUNT 4.76 X10'6 (4.20-5.60); RED CELL DISTRIBUTION WIDTH 13.5 % (11.5-14.5); WHITE BLOOD COUNT 8.2 X10'3 (4.5-11.0)
[2024-09-08 10:41] LABS: HCG SERUM QL NEGATIVE
[2024-09-08] MEDS: LORazepam 1 MG tablet PO ONE (10:58)
[2024-09-08 11:02] LABS: ALANINE AMINOTRANSFERASE 30 U/L (12-78); ALBUMIN/GLOBULIN RATIO 1.1 (1.1-1.5); ALKALINE PHOSPHATASE 83 IU/L (46-116); ANION GAP 6 (8-16); ASPARTATE AMINO TRANSFERASE 20 U/L (10-37); BILIRUBIN,TOTAL 0.3 MG/DL (0.1-1.0); BLOOD UREA NITROGEN 17 MG/DL (7-18); BUN/CREATININE RATIO 18.9 (10.0-20.0); CALCIUM 9.8 MG/DL (8.5-10.1); CHLORIDE 103 MMOL/L (99-107); GLUCOSE 95 MG/DL (70-104); POTASSIUM 4.1 MMOL/L (3.5-5.1); PRO BRAIN NATRIURETIC PEPTIDE 42 PG/ML (0-125); SODIUM 141 MMOL/L (135-145); THYROID STIMULATING HORMONE 1.96 ulU/ml (0.34-4.50); TOTAL CARBON DIOXIDE 31.6 MMOL/L (24-32); TOTAL PROTEIN 7.7 G/DL (6.4-8.2); eCRCL 68 ML/MIN; eGFR 68 ML/MIN
[2024-09-08] MEDS: LIDOcaine 2% Viscous 15ml cup MM PRN (11:45)
[2024-09-08] MEDS: mag hydrox/Alum hydrox/simeth 30ml oral suspension PO ONE (11:45)
[2024-09-08] MEDS: dicyclomine 10 MG capsule PO ONE (11:45)
[2024-09-08 12:10] VITALS: BP 164/89; PULSE 97; RESP 21; TEMP 97.9; O2SAT 98
== END 2024-09-08 12:11 | disposition home or self-care (01) ==
LOC: ER 09:35
DX: F41.9 Anxiety disorder, unspecified (principal); R07.9 Chest pain, unspecified; K21.9 Gastro-esophageal reflux disease without esophagitis; G43.909 Migraine, unspecified, not intractable, without status migrainosus; J45.909 Unspecified asthma, uncomplicated; F31.9 Bipolar disorder, unspecified; G47.30 Sleep apnea, unspecified; I10 Essential (primary) hypertension; Z88.5 Allergy status to narcotic agent; Z98.890 Other specified postprocedural states; Z79.82 Long term (current) use of aspirin
CPT/HCPCS: 36415; 71045; 80053; 83880; 84443; 84484; 84703; 85025; 93005; 99285

== ENCOUNTER 2025-01-04 18:36 | Emergency (ER) | payer BC, MEDICAID ==
[~2025-01-04] VITALS: Ht 162.6 cm; Wt 113.7 kg
--- NOTE | 2025-01-04 19:08 | Physician Documentation ---
History of Present Illness ~ Chief Complaint: Vaginal Bleeding Stated Complaint: "HAVE NOT HAD A PERIOD IN 7YRS JUST STARTED- PAIN" Time Seen by MD: 23:06 Primary Medical Doctor: INGRIS HIGH this is a 44-year-old female who has not had a menstrual period in seven years who presents with lower abdominal pain and vaginal bleeding onset this morning. patient reports additional history of PCOS. Patient reports that she has not had a menstrual cycle in seven years. She does not have an OBGYN Medication Reconciliation Allergies: Coded Allergies: oxycodone (Verified Allergy, Unknown, rash, 09/08/24) Scheduled Aripiprazole* (Abilify*), 15 MG PO DAILY, (Reported) Aspirin (Aspir 81), 1 TAB PO DAILY, (Reported) Azithromycin (Zithromax), 250 MG PO DAILY Azithromycin (Zithromax), 1 TAB PO UD Baclofen (Baclofen), 1 TABLET PO TID, (Reported) Dexamethasone (Dexamethasone), 1 TAB PO DAILY Ibuprofen* (Motrin*), 1-2 TAB PO Q8H Lamotrigine* (Lamictal*), 300 MG PO HS, (Reported) Levalbuterol Tartrate* (Xopenex Inhaler*), 1 PUFF IH Q4H, (Reported) Loratadine* (Claritin*), 10 MG PO DAILY, (Reported) Lurasidone HCl (Latuda), 2 TAB PO DAILY, (Reported) Medroxyprogesterone Acet (Provera), 5 MG PO DAILY Methylprednisolone (Medrol Dosepak), 0 PO UD Omeprazole Magnesium (Prilosec Otc), 20 MG PO BIDAC, (Reported) Ondansetron Hcl (Zofran), 1 TAB PO Q6H Orphenadrine Citrate (Norflex), 1 TAB PO Q12H PRN Pantoprazole Sodium (PROTONIX tablet), 1 TAB PO DAILY Zaleplon (Zaleplon), 1 CAP PO HS, (Reported) Scheduled PRN Acetaminophen* (Tylenol*), 325 MG PO BID PRN, (Reported) Albuterol Sulfate Nebs* (Proventil Nebs*), 2.5 MG IH BID PRN, (Reported) Cyclobenzaprine* (Cyclobenzaprine*), 1 TABLET PO Q8H PRN for muscle spasms Diphenhydramine Hcl (Benadryl), 2 CAP PO PRN PRN for allergies, (Reported) Lorazepam* (Ativan*), 1 MG PO Q8H PRN for for anxiety/agitation, (Reported) ONDANSETRON ODT 4mg tablet (Ondansetron Odt), 1 TABLET PO Q6H PRN for nausea/vomiting Durable Medical Equipment Inhaler, Assist Devices (Aerochamber Z-Stat Plus), UNIT INH, (DME) Past Medical History Past Medical History: Migraine, Hypertension, Asthma, Bronchitis, Pulmonary Embolism, Sleep Apnea, Chronic Pain, Deep Vein Thrombosis, *PSYCH*, Anxiety, Bipolar, Depression Past Surgical History: orthopedic surgeries Other Past Family History: Diabetes, Blood clots Alcohol Use: None Drug Use: none Lives with: Other Lives In: Assisted Care Occupation: disabled Review of Systems ROS All review of systems negative except as per HPI Physical Exam Vital Signs: Temperature: 97.3, Source: Temporal, Heart Rate: 73, Respiratory Rate: 16, BP: 150/81, Pulse Oximetry: 98, Weight: 113.700 Oxygen Flow Rate: 0 Physical Exam General: Patient is awake, alert, oriented x4 in no acute distress Head: Normocephalic and atraumatic. Eyes: Conjunctival normal. EOMI. PERRL. ENT: Mucous membranes moist. Neck: Supple, trachea is midline. Chest: Clear to auscultation bilaterally without rales, rhonchi, or wheezes. There is no accessory muscle use or retractions. Cardiac: RRR without murmurs, gallops, or rubs. Abd: Soft, nondistended, positive tenderness to palpation to left abdomen. No peritonitis, no adnexal tenderness Progress Results/Orders Results/Orders Orders - DAVID JENSEN MD Ct Abdomen Pelvis (01/04/25 23:00) Completed Orders - DAVID JENSEN MD Hcg, Ur Ql (01/04/25 18:50) Cbc/Diff (01/04/25 18:50) BMP (01/04/25 18:50) Lipase (01/04/25 18:50) CMP (01/04/25 18:50) Ua W/Microscopic, Cult If Ind (01/04/25 18:51) Ketorolac Trometh 15mg/Ml Vial (Toradol (01/04/25 23:10) Ct Abdomen Pelvis (01/04/25 23:00) Iohexol 300mg/Ml 100ml Inj. (Omnipaque-3 (01/04/25 23:13) Medications Received in ER Medications (Trade) Dose Ordered Sig/Brisa Route PRN Reason Start Time Stop Time Status Last Admin Dose Admin (Toradol injection) 15 mg ONCE ONCE IV 01/04/25 23:10 01/04/25 23:11 DC 01/04/25 23:45 15 MG Vital Signs 01/04/25 01/04/25 01/04/25 01/04/25 18:48 20:49 23:45 23:56 Temp 97.3 97.8 Pulse 73 72 Resp 16 16 18 14 B/P (MAP) 150/81 148/79 (102) Pulse Ox 98 98 O2 Flow Rate 0 0 Laboratory Tests Test 01/04/25 18:51 01/04/25 19:26 Urine Specimen Description Cln catch midstream Urine Color Yellow Urine Clarity Clear Urine pH 6.0 Urine Specific [place] 1.025 Urine Protein Negative Urine Glucose (UA) Negative Urine Ketones Trace H Urine Occult Blood Moderate H Urine Nitrite Negative Urine Bilirubin Negative Urine Urobilinogen 0.2 Urine Leukocyte Esterase Negative Urine RBC 3-10 Urine WBC 0-4 Urine Squamous Epithelial Cells Moderate Urine Bacteria 1+ Urine Mucus Many Urine Culture Indicated Not ind Volume Urine Centrifuged 10 ml Urine HCG, Qualitative Negative Urine Comment White Blood Count 11.7 H Red Blood Count 4.58 Hemoglobin 12.4 Hematocrit 37.6 Mean Corpuscular Volume 82.2 Mean Corpuscular Hemoglobin 27.0 Mean Corpuscular Hemoglobin Concent 32.9 L Red Cell Distribution Width 14.2 Platelet Count 311 Mean Platelet Volume 8.3 Neutrophils (%) (Auto) 64.7 Lymphocytes (%) (Auto) 25.7 Monocytes (%) (Auto) 7.0 Eosinophils (%) (Auto) 1.7 Basophils (%) (Auto) 0.9 Neutrophils # (Auto) 7.6 Lymphocytes # (Auto) 3.0 Monocytes # (Auto) 0.8 Eosinophils # (Auto) 0.2 Basophils # (Auto) 0.1 CBC Comment Sodium Level 139 Potassium Level 3.8 Chloride Level 103 Carbon Dioxide Level 30.1 Anion Gap 6 L Blood Urea Nitrogen 18 Creatinine 1.01 H Estimated GFR/1.73 m2 59 BUN/Creatinine Ratio 17.8 Glucose Level 92 Calcium Level 9.0 Total Bilirubin 0.3 Aspartate Amino Transf (AST/SGOT) 19 Alanine Aminotransferase (ALT/SGPT) 27 Alkaline Phosphatase 94 Total Protein 7.1 Albumin 3.6 Globulin 3.5 Albumin/Globulin Ratio 1.0 L Lipase 45 Chemistry Comments Medical Decision Making Findings Patient presented to the emergency room with breakthrough bleeding. Differentials include anemia, dysfunctional uterine bleeding, uterine cancer therefore labs ordered as well as imaging and she was reassuring. The need to follow up with her OBGYN discussed Departure Disposition: 01 HOME / SELF CARE / HOMELESS Impression: Primary Impression: Dysfunctional uterine bleeding Condition: Stable Discharge Instructions: Dysfunctional Uterine Bleeding Additional Instructions: You need to follow up with your OBGYN/doctor as unusual uterine bleeding can be caused by cancer. Referrals: NO PRIMARY CARE PROVIDER (PCP) Education Educated: Patient Educated regarding: diagnosis, need for follow up Signature Scribe Signature: No scribe Attestation: The note accurately reflects work and decisions made by me.David Jensen MD 01/05/25 01:07 RAFFY LAZAR Jan 04, 2025 19:08 DAVID JENSEN MD Jan 04, 2025 23:10
[2025-01-04 19:33] LABS: BILIRUBIN,URINE NEGATIVE (Neg); CLARITY,URINE CLEAR (Clear); COLOR,URINE YELLOW (Yellow); GLUCOSE, URINE NEGATIVE (Neg); KETONES,URINE TRACE mg/dl (Neg); LEUKOCYTE ESTERASE ,URINE NEGATIVE (Neg); NITRITES, URINE NEGATIVE (Neg); OCCULT BLOOD,URINE MODERATE (Neg); PROTEIN,URINE NEGATIVE (Neg); UROBILINOGEN,URINE 0.2 E.U/dL (0.2-1.0)
[2025-01-04 19:37] LABS: UA COLLECTION TYPE CLN CATCH MIDSTREAM
[2025-01-04 19:39] LABS: URINE HCG NEGATIVE (NEG)
[2025-01-04 19:41] LABS: BACTERIA,URINE 1+ /HPF (Neg); MUCUS STRANDS MANY /LPF (Neg); SQUAMOUS EPITHELIAL CELL,UR MODERATE /LPF (FEW); WBC,URINE 0-4 /HPF (0-4)
[2025-01-04 19:54] LABS: BASOPHILS # (AUTO) 0.1 X10'3 (0-0.2); BASOPHILS % (AUTO) 0.9 % (0-1); EOSINOPHILS # (AUTO) 0.2 X10'3 (0-0.9); EOSINOPHILS % (AUTO) 1.7 % (0-6); HEMATOCRIT 37.6 % (35.0-45.0); HEMOGLOBIN 12.4 g/dl (12.0-16.0); LYMPHOCYTES % (AUTO) 25.7 % (21-51); MEAN CORPUSCULAR HGB CONC 32.9 g/dL (33.0-36.5); MEAN CORPUSCULAR VOLUME 82.2 FL (78-98); MEAN PLATELET VOLUME 8.3 FL (7.4-10.4); MONOCYTES # (AUTO) 0.8 X10'3 (0-0.9); NEUTROPHILS # (AUTO) 7.6 X10'3 (1.8-7.7); NEUTROPHILS % (AUTO) 64.7 % (42-75); PLATELET COUNT 311 X10'3 (140-440); RED BLOOD COUNT 4.58 X10'6 (4.20-5.60); RED CELL DISTRIBUTION WIDTH 14.2 % (11.5-14.5); WHITE BLOOD COUNT 11.7 X10'3 (4.5-11.0)
[2025-01-04 20:19] LABS: ALANINE AMINOTRANSFERASE 27 U/L (12-78); ALBUMIN 3.6 G/DL (3.4-5.0); ALKALINE PHOSPHATASE 94 IU/L (46-116); ANION GAP 6 (8-16); ASPARTATE AMINO TRANSFERASE 19 U/L (10-37); BILIRUBIN,TOTAL 0.3 MG/DL (0.1-1.0); BLOOD UREA NITROGEN 18 MG/DL (7-18); BUN/CREATININE RATIO 17.8 (10.0-20.0); CHLORIDE 103 MMOL/L (99-107); CREATININE 1.01 MG/DL (0.40-0.90); GLUCOSE 92 MG/DL (70-104); LIPASE 45 U/L (16-77); POTASSIUM 3.8 MMOL/L (3.5-5.1); SODIUM 139 MMOL/L (135-145); TOTAL CARBON DIOXIDE 30.1 MMOL/L (24-32); TOTAL PROTEIN 7.1 G/DL (6.4-8.2); eCRCL 60 ML/MIN; eGFR 59 ML/MIN
[2025-01-04] MEDS ORDERED: iohexol 300mg/ml 100ml inj. ONE (23:13)
[2025-01-04] MEDS: ketorolac trometh 15mg/ml vial 15 MG/ML ML IV ONE (23:45)
--- NOTE | 2025-01-05 01:03 | RADIOLOGY REPORT ---
CT OF THE ABDOMEN AND PELVIS WITH CONTRAST. HISTORY: left sided abd pain COMPARISON: CT ABDOMEN PELVIS on DOS: 02/19/22 TECHNIQUE: Helical axial CT images of the abdomen and pelvis were obtained with intravenous contrast. Multiplanar reformats. One or more of the following radiation dose reduction techniques were used fo r this examination: automated exposure control, adjustment of the mA and/or kV according to patient s ize, use of iterative reconstruction technique. FINDINGS: Mild scattered atelectasis / scarring in the imaged lung bases. Liver: No discrete hepatic lesions as visualized. Gallbladder and biliary system: No sizable, radiopaque cholelithiasis or biliary ductal dilatation. Pancreas: Negative. Spleen: Negative. Adrenal Glands: Negative. Kidneys and collecting system: No hydroureteronephrosis or sizable, obstructing urinary tract calculi identified. Retroperitoneum: No evidence of abdominal aortic aneurysm. Lymph nodes: No discretely enlarged lymph nodes identified. Bowel: No evidence of small-bowel obstruction. Normal caliber appendix. Moderate volume stool throug hout the colon and rectum. No free intraperitoneal air or fluid identified. Pelvis: No sizable bladder calculus. Right ovarian cyst measuring approximately 2.5 cm in diameter. Osseous structures: Interval posterior fixation at T10-T11. Chronic appearing grade 1 anterolisthesis at L5-S1 with bilateral spondylolysis. IMPRESSION: No bowel obstruction, free intraperitoneal air/fluid or sizable inflammatory collections identified o n this noncontrast examination. Moderate volume stool throughout the colon and rectum may indicate constipation. Small right ovarian cyst.
[2025-01-05 01:49] VITALS: BP 114/58; PULSE 78; RESP 16; TEMP 97.8; O2SAT 97
== END 2025-01-05 01:51 | disposition home or self-care (01) ==
LOC: ER 18:37
DX: N93.8 Other specified abnormal uterine and vaginal bleeding (principal); F31.9 Bipolar disorder, unspecified; F41.9 Anxiety disorder, unspecified; G47.30 Sleep apnea, unspecified; I10 Essential (primary) hypertension; J45.909 Unspecified asthma, uncomplicated; Z88.5 Allergy status to narcotic agent
CPT/HCPCS: 36415; 74177; 80053; 81001; 81025; 83690; 85025; 96374; 99285; J1885; Q9967

== ENCOUNTER 2025-03-23 12:03 | Emergency (ER) | payer BC, MEDICAID ==
[~2025-03-23] VITALS: Ht 160 cm; Wt 111.3 kg
--- NOTE | 2025-03-23 13:52 | Physician Documentation ---
History of Present Illness ~ Chief Complaint: Mental Health Eval Stated Complaint: HEADACHE/MENTAL HEALTH EVAL Time Seen by MD: 13:28 [facility]: Ambulatory HPI 44-year-old female with a history of intellectual disability, bipolar disorder and borderline personality disorder presents from her facility who is managed by [facility] today for concerns of a headache and nausea vomiting She does have a history of SI but is not presenting with that concern today. Does not want to harm herself or anyone else. Caregiver indicates that she does have a history of banging her head against the wall which she did do proximally a week ago. She also stopped and started her Vyvanse recent Day of Onset: Mar 23, 2025 Medication Reconciliation Allergies: Coded Allergies: oxycodone (Verified Allergy, Unknown, rash, 09/08/24) Scheduled Aripiprazole* (Abilify*), 15 MG PO DAILY, (Reported) Aspirin (Aspir 81), 1 TAB PO DAILY, (Reported) Azithromycin (Zithromax), 250 MG PO DAILY Azithromycin (Zithromax), 1 TAB PO UD Baclofen (Baclofen), 1 TABLET PO TID, (Reported) Dexamethasone (Dexamethasone), 1 TAB PO DAILY Ibuprofen* (Motrin*), 1-2 TAB PO Q8H Lamotrigine* (Lamictal*), 300 MG PO HS, (Reported) Levalbuterol Tartrate* (Xopenex Inhaler*), 1 PUFF IH Q4H, (Reported) Loratadine* (Claritin*), 10 MG PO DAILY, (Reported) Lurasidone HCl (Latuda), 2 TAB PO DAILY, (Reported) Medroxyprogesterone Acet (Provera), 5 MG PO DAILY Methylprednisolone (Medrol Dosepak), 0 PO UD Omeprazole Magnesium (Prilosec Otc), 20 MG PO BIDAC, (Reported) Ondansetron Hcl (Zofran), 1 TAB PO Q6H Orphenadrine Citrate (Norflex), 1 TAB PO Q12H PRN Pantoprazole Sodium (PROTONIX tablet), 1 TAB PO DAILY Zaleplon (Zaleplon), 1 CAP PO HS, (Reported) Scheduled PRN Acetaminophen* (Tylenol*), 325 MG PO BID PRN, (Reported) Albuterol Sulfate Nebs* (Proventil Nebs*), 2.5 MG IH BID PRN, (Reported) Cyclobenzaprine* (Cyclobenzaprine*), 1 TABLET PO Q8H PRN for muscle spasms Diphenhydramine Hcl (Benadryl), 2 CAP PO PRN PRN for allergies, (Reported) Lorazepam* (Ativan*), 1 MG PO Q8H PRN for for anxiety/agitation, (Reported) ONDANSETRON ODT 4mg tablet (Ondansetron Odt), 1 TABLET PO Q6H PRN for nausea/vomiting Durable Medical Equipment Inhaler, Assist Devices (Aerochamber Z-Stat Plus), UNIT INH, (DME) Past Medical History Past Medical History: Migraine, Hypertension, Asthma, Bronchitis, Pulmonary Embolism, Sleep Apnea, Chronic Pain, Deep Vein Thrombosis, *PSYCH*, Anxiety, Bipolar, Depression Past Surgical History: orthopedic surgeries Other Past Family History: Diabetes, Blood clots Alcohol Use: None Drug Use: none Lives with: Other Lives In: Assisted Care Occupation: disabled Physical Exam Vital Signs: Temperature: 98.0, Source: Temporal, Heart Rate: 79, Respiratory Rate: 16, BP: 141/65, Pulse Oximetry: 97, Weight: 111.300 Oxygen Flow Rate: 0 Physical Exam General: Alert, no apparent distress. Respiratory: Lungs clear, no respiratory distress. Cardiovascular: Regular rate and rhythm, no murmurs. Gastrointestinal: Soft, nontender, nondistended. Bowels sounds present. Neurologic: Oriented x3 Psychiatric: Normal mood and affect. Skin: Normal color, warm and dry. No edema, no ecchymosis. Progress Results/Orders Results/Orders Completed Orders - BRUCE PITTS NP Ketorolac Trometh 30mg/Ml Vial (Toradol (03/23/25 13:55) Ondansetron Disint. Tablet (Zofran Odt T (03/23/25 13:55) Haloperidol Lact. (Haldol) (03/23/25 14:30) Acetaminophen 325mg Tablet (Tylenol Tabl (03/23/25 14:30) Medications Received in ER Medications (Trade) Dose Ordered Sig/Brisa Route PRN Reason Start Time Stop Time Status Last Admin Dose Admin (Toradol inj. 30mg/ml) 30 mg ONCE ONCE IM 03/23/25 13:55 03/23/25 13:56 DC 03/23/25 13:58 30 MG (Zofran ODT tablet) 4 mg ONCE ONCE PO 03/23/25 13:55 03/23/25 13:56 DC 03/23/25 13:58 4 MG (Tylenol tablet) 325 mg ONCE ONCE PO 03/23/25 14:30 03/23/25 14:31 DC 03/23/25 14:45 325 MG Vital Signs 03/23/25 03/23/25 12:07 12:32 Temp 98.0 Pulse 79 Resp 16 B/P (MAP) 141/65 Pulse Ox 97 O2 Flow Rate 0 Medical Decision Making Findings 44-year-old female presented via caregivers who repeatedly advised me that patient is at her cognitive baseline and does not have any acute injuries other than her headache. Patient denies any light sensitivity she reports improved nausea but a persistent headache after receiving Toradol. I am going to give her a low-dose Haldol and Tylenol and re-evaluate Patient refused Haldol and received Tylenol. She does not present with any acute neurological symptoms outside of chronic headache symptoms this may be attributed to her recent head banging episode. However the caregiver indicates that she has had aches often. She has no focal deficits and no signs of acute injury. Denies any dizziness or light sensitivity I am going to discharge her for outpatient therapy Differential Dx:Considerations: Include: Alcohol abuse, Anxiety, Bipolar disorder, Conversion disorder, Depression, Encephaloathy, Homicidal, Panic disorder, Personality disorder, Schizophrenia, Substance abuse, Suicidal, Other Departure Disposition: 01 HOME / SELF CARE / HOMELESS Impression: Primary Impression: Headache Additional Impressions: Anxiousness Nausea Schizophrenia Condition: Stable Discharge Instructions: Migraine Headache, [id number], Suicidal Feelings: How to Help Yourself Referrals: NO PRIMARY CARE PROVIDER (PCP) Signature Scribe Signature: t Attestation: Scribed for Bruce Pitts Counseling Department Chair by Bruce Rosenbaum NP . 03/23/25 14:20 BRUCE PITTS NP Mar 23, 2025 13:52
[2025-03-23] MEDS: ketorolac trometh 30MG/ML vial 30 MG/ML VIAL IM ONE (13:58)
[2025-03-23] MEDS: ondansetron 4mg rapidly disintigrating tab PO ONE (13:58)
[2025-03-23] MEDS: haloperidol lactate 5mg/ml inj IM ONE (14:44)
[2025-03-23 14:59] VITALS: BP 144/88; PULSE 72; RESP 18; TEMP 98; O2SAT 97
== END 2025-03-23 14:55 | disposition home or self-care (01) ==
LOC: ER 12:05
DX: R51.9 Headache, unspecified (principal); F41.9 Anxiety disorder, unspecified; R11.0 Nausea; F20.9 Schizophrenia, unspecified; F31.9 Bipolar disorder, unspecified; G47.30 Sleep apnea, unspecified; I10 Essential (primary) hypertension; J45.909 Unspecified asthma, uncomplicated; Z88.5 Allergy status to narcotic agent; Z88.8 Allergy status to other drugs, medicaments and biological substances
CPT/HCPCS: 96372; 99284; J1885

== ENCOUNTER 2025-05-09 13:20 | Emergency (ER) | payer BC, MEDICAID ==
[~2025-05-09] VITALS: Ht 160 cm; Wt 113.1 kg
[2025-05-09 14:04] LABS: LEUKOCYTE ESTERASE ,URINE NEGATIVE (Neg); NITRITES, URINE NEGATIVE (Neg); OCCULT BLOOD,URINE NEGATIVE (Neg)
[2025-05-09 14:05] LABS: UA COLLECTION TYPE CLN CATCH MIDSTREAM
[2025-05-09 14:07] LABS: URINE HCG NEGATIVE (NEG)
[2025-05-09 15:44] VITALS: BP 157/79; PULSE 87; RESP 15; O2SAT 100
[2025-05-09 15:48] LABS: MEAN PLATELET VOLUME 8.5 FL (7.4-10.4); RED CELL DISTRIBUTION WIDTH 13.9 % (11.5-14.5)
--- NOTE | 2025-05-09 15:53 | Physician Documentation ---
History of Present Illness ~ Chief Complaint: Urinary Symptoms Stated Complaint: ABD PAIN/TROUBLE URINATING Time Seen by MD: 14:16 Primary Medical Doctor: INGRIS HPI Patient is a very pleasant 44-year-old female that presents to the emergency department for evaluation of lower abdominal pain times 1-2 days. 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 Reports that she is followed by urologist and a neurologist frequently has issues with her bladder and can not tell if she is fully emptied her bladder or not. Patient reports today that she has had abdominal pain that feels little bit worse than her normal fullness of her bladder and pulling of her bladder. Patient denies fever chills nausea vomiting diarrhea at this time. Medication Reconciliation Allergies: Coded Allergies: oxycodone (Verified Allergy, Unknown, rash, 05/09/25) Scheduled Aripiprazole* (Abilify*), 15 MG PO DAILY, (Reported) Aspirin (Aspir 81), 1 TAB PO DAILY, (Reported) Azithromycin (Zithromax), 250 MG PO DAILY Azithromycin (Zithromax), 1 TAB PO UD Baclofen (Baclofen), 1 TABLET PO TID, (Reported) Dexamethasone (Dexamethasone), 1 TAB PO DAILY Ibuprofen* (Motrin*), 1-2 TAB PO Q8H Lamotrigine* (Lamictal*), 300 MG PO HS, (Reported) Levalbuterol Tartrate* (Xopenex Inhaler*), 1 PUFF IH Q4H, (Reported) Loratadine* (Claritin*), 10 MG PO DAILY, (Reported) Lurasidone HCl (Latuda), 2 TAB PO DAILY, (Reported) Medroxyprogesterone Acet (Provera), 5 MG PO DAILY Methylprednisolone (Medrol Dosepak), 0 PO UD Omeprazole Magnesium (Prilosec Otc), 20 MG PO BIDAC, (Reported) Ondansetron Hcl (Zofran), 1 TAB PO Q6H Orphenadrine Citrate (Norflex), 1 TAB PO Q12H PRN Pantoprazole Sodium (PROTONIX tablet), 1 TAB PO DAILY Zaleplon (Zaleplon), 1 CAP PO HS, (Reported) Scheduled PRN Acetaminophen* (Tylenol*), 325 MG PO BID PRN, (Reported) Albuterol Sulfate Nebs* (Proventil Nebs*), 2.5 MG IH BID PRN, (Reported) Cyclobenzaprine* (Cyclobenzaprine*), 1 TABLET PO Q8H PRN for muscle spasms Diphenhydramine Hcl (Benadryl), 2 CAP PO PRN PRN for allergies, (Reported) Lorazepam* (Ativan*), 1 MG PO Q8H PRN for for anxiety/agitation, (Reported) ONDANSETRON ODT 4mg tablet (Ondansetron Odt), 1 TABLET PO Q6H PRN for nausea/vomiting Durable Medical Equipment Inhaler, Assist Devices (Aerochamber Z-Stat Plus), UNIT INH, (DME) Past Medical History Past Medical History: Migraine, Hypertension, Asthma, Bronchitis, Pulmonary Embolism, Sleep Apnea, Chronic Pain, Deep Vein Thrombosis, *PSYCH*, Anxiety, Bipolar, Depression Past Surgical History: orthopedic surgeries Other Past Family History: Diabetes, Blood clots Alcohol Use: None Drug Use: none Lives with: Other Lives In: Assisted Care Occupation: disabled Review of Systems ROS As stated above in the HPI, otherwise all systems are reviewed and negative. Physical Exam Vital Signs: Temperature: 98.5, Source: Oral, Heart Rate: 87, Respiratory Rate: 15, BP: 157/79, Pulse Oximetry: 100, Weight: 113.100 Oxygen Flow Rate: 0 Physical Exam VITALS: Reviewed and as above. GENERAL: Alert, no apparent distress. HEENT: Normocephalic, atraumatic, PERRL, EOMI, dry mucosa, no erythema RESPIRATORY: Lungs clear, normal breath sounds, no respiratory distress. CHEST: No accessory muscle use, no retractions CV: Regular rate, rhythm, no edema, no murmur, No: JVD GI: Soft, mild tenderness with palpation during examination, bowels sounds present, no rebound, guarding, or rigidity. BACK: No CVA tenderness, or swelling MUSCULOSKELETAL No deformities, no edema SKIN: Warm and dry, no rash NEURO: Oriented x4, No motor or sensory deficit PSYCH: Normal mood and affect, no agitation Progress Results/Orders Results/Orders Orders - GENEVIEVE SUN * Bladder Scan / Post Residual (05/09/25 14:54) Ct Abdomen Pelvis (05/09/25 16:50) Completed Orders - GENEVIEVE SUN [employer] Cbc/Diff (05/09/25 15:17) CMP (05/09/25 15:17) Ct Abdomen Pelvis (05/09/25 16:50) Iohexol 300mg/Ml 100ml Inj. (Omnipaque-3 (05/09/25 16:46) Vital Signs 05/09/25 05/09/25 13:28 15:44 Temp 98.5 Pulse 98 87 Resp 16 15 B/P (MAP) 186/92 157/79 (105) Pulse Ox 97 100 O2 Flow Rate 0 Laboratory Tests Test 05/09/25 13:32 05/09/25 15:27 Urine Specimen Description Cln catch midstream Urine Color Straw Urine Clarity Clear Urine pH 6.5 Urine Specific [place] <=1.005 Urine Protein Negative Urine Glucose (UA) Negative Urine Ketones Negative Urine Occult Blood Negative Urine Nitrite Negative Urine Bilirubin Negative Urine Urobilinogen 0.2 Urine Leukocyte Esterase Negative Urine Culture Indicated Not ind Volume Urine Centrifuged 10 ml Urine HCG, Qualitative Negative Urine Comment White Blood Count 10.5 Red Blood Count 4.61 Hemoglobin 12.6 Hematocrit 38.1 Mean Corpuscular Volume 82.7 Mean Corpuscular Hemoglobin 27.4 Mean Corpuscular Hemoglobin Concent 33.1 Red Cell Distribution Width 13.9 Platelet Count 307 Mean Platelet Volume 8.5 Neutrophils (%) (Auto) 60.6 Lymphocytes (%) (Auto) 27.9 Monocytes (%) (Auto) 8.2 Eosinophils (%) (Auto) 2.5 Basophils (%) (Auto) 0.8 Neutrophils # (Auto) 6.4 Lymphocytes # (Auto) 2.9 Monocytes # (Auto) 0.9 Eosinophils # (Auto) 0.3 Basophils # (Auto) 0.1 CBC Comment Sodium Level 140 Potassium Level 4.0 Chloride Level 103 Carbon Dioxide Level 30.3 Anion Gap 7 L Blood Urea Nitrogen 17 Creatinine 0.94 H Estimated GFR/1.73 m2 64 BUN/Creatinine Ratio 18.1 Glucose Level 94 Calcium Level 9.2 Total Bilirubin 0.2 Aspartate Amino Transf (AST/SGOT) 19 Alanine Aminotransferase (ALT/SGPT) 26 Alkaline Phosphatase 88 Total Protein 7.4 Albumin 3.4 Globulin 4.0 Albumin/Globulin Ratio 0.9 L Chemistry Comments Medical Decision Making Additional information obtaine: other Findings For a 44-year-old female with lower abdominal pain, chronic voiding dysfunction, asthma, PCOS, and chronic back pain, who had a negative CT scan for acute pathology, the recommended follow-up and management is outpatient reassessment, targeted specialty referral, and multimodal symptom management. This patients history of inability to sense bladder emptying and chronic urinary issues, negatives laboratory diagnostics, combined with a negative CT scan (no bowel, renal, or gynecologic acute pathology), suggests a non-acute etiology such as bladder pain syndrome, pelvic floor dysfunction, or central sensitization.Chronic pelvic pain often has multifactorial causes and requires a biopsychosocial approach. Outpatient follow-up should include: Primary care reassessment within 12 weeks to monitor symptom progression and coordinate further evaluation. Urology referral for persistent voiding dysfunction, especially if symptoms worsen or there is suspicion for bladder pathology. Gynecology referral if abnormal bleeding, cyclic pain, or suspicion for endometriosis arises. Interdisciplinary pain management if pain is chronic and unresponsive to initial measures. Further diagnostic evaluation is generally low yield after a negative CT unless new symptoms develop. Pelvic ultrasound may be considered if gynecologic pathology is suspected, but routine additional imaging is not recommended.Cystography is reserved for cases with signs of bladder injury or severe voiding dysfunction. Laboratory tests (urinalysis, STI screening, endometrial biopsy if indicated) should be tailored to symptoms. Management strategies should be multimodal: Pain education, self-care, behavioral therapy, physical therapy, and pharmacotherapy are first-line. NSAIDs should be used cautiously in asthma; acetaminophen is preferred, with monitoring for rare adverse effects. Hormonal therapy may be considered for cyclic pain or PCOS-related symptoms. Opioids are not recommended for chronic pelvic pain. Return precautions: Advise return to the ED for worsening pain, new urinary retention, hematuria, fever, or other concerning symptoms. This approach is supported by current guidelines and reviews on chronic pelvic pain and recurrent abdominal pain in adults. Would you like me to review the evidence and guidelines on the evaluation and management of chronic voiding dysfunction in women, particularly focusing on diagnostic strategies such as urodynamic testing and their impact on treatment decisions? Urinary Diff Dx:Considerations: Include: AAA, , Aortic dissection, Appendicitis, Bowel obstruction, Cholelithiasis, Choleangitis, DJD, Ectopic , Hepatitis, HNP, Impaction, Intrauterine , Musculoskeletal pain, Ovarian torsion, Pancreatitis, PID, Post-Op complication, Pyelonephritis, Renal failure, Strain, Urinary Obstruction, Urolithiasis, Urinary retention, UTI, Vaginitis, Other Genital Diff Dx:Considerations: Include: -Complete, - Incomplete, -Inevitable, Ablortion-Missed, -Threatened, Abruptio placentae, Bartholin abscess, Bartholin cyst, Blood loss anemia, Constipation, Cervicitis, Dsymenorrhea, Ectopic , Foreign body, Hormonal, Hidradenitis suppurativa, Intrauterine , Menorrhagia, Menometrorrhagia, Menstrual bleeding, Myomatous uterus, Perianal abscess, Physiologic discharge, Pinworms, PID, Placenta previa, , Precipitous Hct, Trauma, UTI, Vaginitis(osis)-Atrophic, Vaginitis, Vaginitis(osis)-Bacterial, Vaginitis(osis)- Candidal, Vaginitis(osis)-Contact, Vaginitis(osis)-Herpes, Vaginitis(osis)- Trich., Other Departure Disposition: 01 HOME / SELF CARE / HOMELESS Impression: Primary Impression: Abdominal pain Condition: Stable Discharge Instructions: Abdominal Pain, Adult, [id number] Additional Instructions: Thank you for coming to the emergency department today. Your child was evaluated for lower abdominal pain that has lasted 1-2 days. She has a history of urinary issues, and todays testsincluding a CT scan and laboratory diagnostics showed no signs of serious problems like infection, kidney stones, or appendicitis. What to expect: Most causes of abdominal pain in children are mild and get better on their own. It is common for children with urinary issues to have trouble knowing when their bladder is empty, and this can sometimes cause discomfort. What you can do at home: Make sure your child drinks plenty of water. Encourage regular bathroom visits, even if she doesnt feel the urge. Watch for constipation and encourage a diet with fruits, vegetables, and fiber. Use [id number] pain medicine like acetaminophen if needed, following package instructions. When to seek medical care: Return to the emergency department or call your doctor if your child has: Severe or worsening abdominal pain Pain that does not improve in a few days Fever, vomiting, or chills Blood in urine or trouble urinating New back pain or pain with urination Follow-up: Schedule a visit with your ken primary care provider for ongoing urinary issues or if symptoms do not improve. If your child has frequent pain attacks or a family history of kidney stones, further evaluation may be needed. If you have any questions or concerns, please contact your healthcare provider. Please follow up with her primary care provider. Please return to the emergency department with any worsening or recurrent symptoms or any additional concerning symptoms we discussed here today. Referrals: NO PRIMARY CARE PROVIDER (PCP) Education Educated: Patient Educated regarding: diagnosis, treatment, need for follow up Signature Scribe Signature: A Attestation: Scribed for Genevieve Sun by ROSANNE Sprague . 05/09/25 19:03 GENEVIEVE SUN May 09, 2025 15:53
[2025-05-09 16:01] LABS: CREATININE 0.94 MG/DL (0.40-0.90); TOTAL CARBON DIOXIDE 30.3 MMOL/L (24-32); eCRCL 62 ML/MIN; eGFR 64 ML/MIN
[2025-05-09] MEDS ORDERED: iohexol 300mg/ml 100ml inj. ONE (16:46)
--- NOTE | 2025-05-09 18:03 | RADIOLOGY REPORT ---
CLINICAL HISTORY: Lower abdomen pelvic pain, significant urologic history. TECHNIQUE: CT of the abdomen and pelvis was performed with intravenous contrast. 100 mL Omnipaque 300 injected This exam was performed according to our departmental dose optimization program. Up-to-date CT equipment and radiation dose reduction techniques are utilized as appropriate. CTDIVol: 36.88 mGy DLP: 1946.92 mGy-cm WID: COMPARISON: CT CT ABDOMEN PELVIS W/ IV CONTRAST on DOS: 01/04/25, FINDINGS: Lower Thorax: Unremarkable. Liver and Biliary system: Unremarkable. Spleen: Unremarkable. Adrenal Glands and Kidneys: Unremarkable. Pancreas and Retroperitoneum: Unremarkable. Aorta and Major Vessels: Aortoiliac vessels are patent and normal caliber. Bowel, Mesentery and Peritoneal space: Normal caliber small and large bowel. Normal appendix. There is no free intraperitoneal air or loculated fluid collection. Pelvis: Urinary bladder is mildly distended. The uterus and ovaries are grossly unremarkable. There is no pelvic lymphadenopathy. Abdominal wall and Osseous Structures: Multilevel lower thoracic and lumbar spondylosis. Grade 1 anterolisthesis at L5-S1. There is bilateral L5 spondylolysis. Posterior spinal fixation hardware at T10-T11 with bilateral rods and transpedicular screws. No destructive osseous lesion. IMPRESSION: 1. No bowel obstruction, fluid collection, or free air. Normal appendix. 2. No hydronephrosis or nephrolithiasis.
[2025-05-09 19:40] VITALS: TEMP 98.5
== END 2025-05-09 19:55 | disposition home or self-care (01) ==
LOC: ER 13:20
DX: R10.30 Lower abdominal pain, unspecified (principal); F31.9 Bipolar disorder, unspecified; G47.30 Sleep apnea, unspecified; J45.909 Unspecified asthma, uncomplicated; Z88.5 Allergy status to narcotic agent; Z88.8 Allergy status to other drugs, medicaments and biological substances
CPT/HCPCS: 36415; 74177; 80053; 81003; 81025; 85025; 99285; Q9967